=== PATIENT | male | born 1990 | race Caucasian/White ===

== ENCOUNTER 2022-12-30 07:50 | Outpatient (CLI) | payer OTHER, SELFPAY | END 2022-12-30 07:51 | disposition home or self-care (01) | LOC: NFLDREF 20:48 | PROVIDERS: PCP Family Medicine; Referring Provider Family Medicine; Visit Provider Family Medicine | DX: Z13.6 Encounter for screening for cardiovascular disorders (principal); Z13.1 Encounter for screening for diabetes mellitus | CPT/HCPCS: 80061; 82947 ==

== ENCOUNTER 2023-12-08 09:57 | Outpatient (CLI) | payer BC, SELFPAY ==
--- OUTSIDE RECORDS SUMMARY | 2023-12-08 10:00 | XMS_ITS | Encounter Summary ---
Author Organization [facility] Address [address] [place] [address] Care Team Providers Care Patient Relations Manager Name Role Phone Cullen Gonzales MD Primary Care Provider [phone] Encounter Details Date Type Department Care Team (Late st Contact Info) Description 12/03/2023 Telephone [facility] Services - Behavioral Service Line [address] [place] [phone] Gay Moya Social History Tobacco Use Types Packs/Day Years Used Date Smoking Tobacco: Every Day Smokeless Tobacco: Never Alcohol Use Standard Drinks/Week Comments Yes 0 (1 standard drink = 0.6 oz pur e alcohol) Sex and Gender Information Value Date Recorded Sex Assigned at Not on file Gender Identity Not on file Sexual Orientation Not on file documented as of this encounter Miscellaneous Notes * Telephone Encounter - Gay Moya - 12/03/2023 10:32 AM CDT Triage and Transition Services- Patient Follow Up Call Service Line Making Phone Call: Extended Care Who did Room Service Associate Talk to: Patient Details of Call: Patient returned call and identified that he has his appointments set up and has no further needs. Gay Moya 12/03/2023 10:32 AM documented in this encounter Plan of Treatment Not on file documented as of this encounter Visit Diagnoses Not on filedocumented in this encounter Additional Health Concerns Assessment Noted Time PHQ-9 Depression Total Score: 8 09/09/19 17 7:29 AM CDT documented as of this encounter Care Teams Patient Relations Manager Relationship Specialty Start Date End Date Cullen Gonzales MD [facility] [place] [address] PCP - General Family Medicine 11/30/23 documented as of this encounter
--- OUTSIDE RECORDS SUMMARY | 2023-12-08 10:00 | XMS_ITS | Clinical Summary ---
Author Organization [facility] Address [address] [place] [address] Care Team Providers Care Kaiawhina Kura [place] Maori Name Role Phone Cullen Gonzales MD Primary Care Provider Allergies Active Allergy Reactions Criticality Noted Date Comments Amoxicillin-Pot Clavulanate 09/10/19 17 Cefaclor Hives 09/07/2016 Medications Medication Sig Dispensed Refills Start Date End Date Status hydrOXYzine HCl (ATARAX) 25 MG tablet Take 1 tablet (25 mg) by mouth 3 times daily as needed for anxiety. 12 tablet 12/02/2023 Active sertraline (ZOLOFT) 100 MG tablet Take 1.5 tablets (150 mg) by mouth daily. 45 tablet 12/02/2023 4 Active sertraline (ZOLOFT) 100 MG tablet Take 100 mg by mouth daily. 90 tablet 1 09/07/2016 4 Discontinued ondansetron (ZOFRAN ODT) 4 MG ODT tabIndications:D iverticulitis of colon Take 1 tablet (4 mg) by mouth 3 times daily (before meals) 20 tablet 1 09/07/2016 4 Discontinued(Med Rec(No AVS / No eCancel)) Active Problems Problem Noted Date Diagnosed Date Severe episode of recurrent major depressive disorder, without psychotic features 12/01/2023 Tethered cord 09/25/2016 Neurogenic bladder 09/09/2016 Self-catheterizes urinary bladder 09/09/2016 Chronic idiopathic constipation 09/09/2016 Irritable bowel syndrome with constipation 09/07 Recurrent major depressive disorder, in partial remission 09/07/2016 Anxiety 09/07/2016 Encounters Date Type Department Care Team Description 12/03/2023 Telephone [facility] - Behavioral Service Line [address] [place] [address] Gay Moya 12/03/2023 [facility] Line [facility] [place] [phone] ReneAmanda talley Chava 12/02/2023 Travel 12/02/2023 Telephone [facility] Intake [address] [place] [phone] Generic Behavioral Nandini, MH/CD Inpatient 12/01/2023 [facility] Intake [address] [place] [phone] [facility] Nandini, MH/CD Inpatient 11/30/2023 8:28 PM CDT - 12/02/2023 1:37 PM CDT Emergency [facility] Emergency Dept [address] [place] [phone] Pierce Lorenzo MD Daro, MD David Stevens Christopher E, MD Dunbar, MD Jose Bailey, Darien Rowley MD Suicidal ideation Discharge Disposition: Home or Self Care 11/30/2023 [facility] Intake [address] [place] [phone] Behavioral Nandini Hart MD MH/CD Inpatient 11/30/2023 Travel from Last 3 Months Immunizations Name Administration Dates Next Due DTAP (<7y) 12/11/1995, 3,10/08/1991,04/28/1991, 02/03/1991 HIB (PRP-T) 02/02/1992,10/06/1991,04/28/1991 ,02/03/1991 HepB 10/02/2002,04/17/2002,02/27/2002 MMR 12/11/1995,02/02/1992 Meningococcal ACWY (Menactra??) 02/01/2008 Poliovirus, inactivated (IPV) 12/11/1995, 993,04/28/1991,02/03/1991 TD,PF 7+ (Tenivac) 08/10/2003 TDAP Vaccine (Adacel) 02/01/2008 Family History Medical History Relation Comments Diabetes Maternal Aunt Diabetes Maternal Grandmother Alcoholism Paternal Grandfather Relation Status Comments Brother Alive Father Alive Maternal Aunt Alive Maternal Grandfather Alive Maternal Grandmother Alive Mother Alive Paternal Grandfather Alive Paternal Grandmother Social History Tobacco Use Types Packs/Day Years Used Date Smoking Tobacco: Every Day Smokeless Tobacco: Never Alcohol Use Standard Drinks/Week Comments Yes 0 (1 standard drink = 0.6 oz pur e alcohol) Sex and Gender Information Value Date Recorded Sex Assigned at Not on file Gender Identity Not on file Sexual Orientation Not on file Last Filed Vital Signs Vital Sign Reading Time Taken Comments Blood Pressure 150/94 12/02/2023 1:11 PM CDT Pulse 99 12/02/2023 1:11 PM CDT Temperature 37.2 ??C (98.9 ??F) 12/01/2023 9:00 AM CD T Respiratory Rate 16 12/02/2023 1:11 PM CDT Oxygen Saturation 99% 12/02/2023 1:11 PM CDT Inhaled Oxygen Concentration - - Weight 80.6 kg (177 lb 11.1 oz) 11/30/2023 8:26 PM CDT Height 167.6 cm (5' 6) 11/30/2023 8:26 PM CDT Body Mass Index 28.68 11/30/2023 8:26 PM CDT Plan of Treatment Health Maintenance Due Date Last Done Comments ADVANCE CARE PLANNING 1990 ANNUAL REVIEW OF HM ORDERS 1990 DEPRESSION ACTION PLAN 1990 NICOTINE/TOBACCO CESSATION COUNSELING Q 1 YR 1990 YEARLY PREVENTIVE VISIT 1990 Pneumococcal Vaccine: Pediatrics (0 to 5 Years) and At-Risk Patients (6 to 64 Years) (1 of 2 - PCV) 1996 HIV SCREENING 2005 HEPATITIS C SCREENING 2008 PHQ-9 03/10/2017 09/07/2016, 09/05/2015 COVID-19 Vaccine ( season) 2023 03/16/2021, 04/09/2020, 03/19/2020 INFLUENZA VACCINE (#1) 2023 , 12/14/2019, 01/16/2013, Additional history exists DTAP/TDAP/TD IMMUNIZATION (8 - Td or Tdap) 05/07/2027 05/06/2017, 02/01/2008, 08/13/2003, Additional history exists RSV VACCINE (1 - 1-dose 75+ series) 2065 HEPATITIS B IMMUNIZATION Completed 003, 10/02/2002, 04/17/2002, Additional history exists MENINGITIS IMMUNIZATION Completed 02/01/2008 HPV IMMUNIZATION Aged Out No longer e ligible based on patient's age to complete this topic RSV MONOCLONAL ANTIBODY Aged Out No l onger eligible based on patient's age to complete this topic Procedures Procedure Name Priority Date/Time Associated Diagnosis Comments URINE DRUG SCREEN STAT 12/01/2023 9:1 9 AM CDT URINE DRUG SCREEN PANEL STAT 12/01/2023 9:19 AM CDT COVID-19 VIRUS (CORONAVIRUS) BY PCR STAT 11/30/2023 11:17 PM CDT CBC WITH PLATELETS & DIFFERENTIAL STAT 11/30/2023 11:10 PM CDT CBC WITH PLATELETS AND DIFFERENTIAL STAT 11/30/2023 11:10 PM CDT ETHYL ALCOHOL LEVEL STAT 11/30/2023 1 1:10 PM CDT COMPREHENSIVE METABOLIC PANEL STAT 11/30/2023 11:10 PM CDT PHQ-9 DEPRESSION SCREENING ORDER Routine 09/05/2015 from Last 3 Months or Most Recently Relevant to Health Maintenance Results * (ABNORMAL) Urine Drug Screen Panel (12/01/2023 9:19 AM CDT) [facility] Amphetamines Urine Screen Negative Screen Negative 12/01/2023 10:11 AM CDT LABORATORY Comment:Cutoff for a negativ e amphetamine is less than 500 ng/mL. Barbituates Urine Screen Negative Screen Negative 12/01/2023 10:11 AM CDT LABORATORY Comment:Cutoff for a negativ e barbiturate is less than 200 ng/mL. Benzodiazepine Urine Screen Negative Screen Negative 12/01/2023 10:11 AM CDT LABORATORY Comment:Cutoff for a negativ e benzodiazepine is less than 100 ng/mL. Cannabinoids Urine Screen Positive(A) Screen Negative 12/01/2023 10:11 AM CDT LABORATORY Comment: Cutoff for a positive cannabinoid is 50 ng/mL or greater. This is an unconfirmed screening result to be used for medical purposes only. Cocaine Urine Screen Negative Screen Negative 12/01/2023 10:11 AM CDT [facility] Comment:Cutoff for a negativ e cocaine is less than 300 ng/mL. Fentanyl Qual Urine Screen Negative Screen Negative 12/01/2023 10:11 AM CDT [facility] Comment:Cutoff for negative fentanyl is less than 5 ng/mL. Opiates Urine Screen Negative Screen Negative 12/01/2023 10:11 AM CDT [facility] Comment:Cutoff for a negativ e opiate is less than 300 ng/mL. PCP Urine Screen Negative Screen Negative 12/01/2023 10:11 AM CDT LABORATORY Comment:Cutoff for a negativ e PCP is less than 25 ng/mL. Urine URINE SPECIMEN FROM URINARY CONDUIT / Unknown Non-blood Collection / Unknown 12/01/2023 9:19 AM CDT 12/01/2023 9:24 AM CDT Pierce Lorenzo MD LAB - URINE ORDERABL ES LABORATORY [facility] [address] [facility] Lab (1st floor, no room number) [place] [address] * Asymptomatic COVID-19 Virus (Coronavirus) by PCR Nose (11/30/2023 11:17 PM CDT) SARS CoV2 PCR Negative Negative 11/30/2023 11:59 PM CDT LABORATORY Comment:NEGATIVE: SARS-CoV-2 (COVID-19) RNA not detected, presumed negative. Swab NASAL STRUCTURE / Unknown Non-blood Collection / Unknown 11/30/2023 11:17 PM CDT 11/30/2023 11:19 PM CDT Narrative [facility] - 11/30/2023 11:59 PM CDT Testing was performed using the Xpert Xpress SARS-CoV-2 Assay on the [employer]. Additional information about this assay can be found via the Test Directory. This [place] FDA cleared test should be ordered for the detection of SARS-CoV-2 in individuals with signs and symptoms of respiratory tract infection. This test is for in vitro diagnostic use under the US FDA for laboratories certified under CLIA to perform high complexity testing. A negative result does not rule out the presence of PCR inhibitors in the specimen or target RNA concentration below the limit of detection for the assay. The possibility of a false negative should be considered if the patient's recent exposure or clinical presentation suggests COVID-19. This test was validated by [facility]. These Laboratories are certified under the ??Clinical Laboratory Improvement Amendments (CLIA) as qualified to perform high complexity testing. Pierce Lorenzo MD LAB - MICRO GENERAL ORDERABLES [facility] [address] [facility] Lab (1st floor, no room number) [place] [address] * CBC with platelets and differential (11/30/2023 11:10 PM CDT) WBC Count 5.6 4.0 - 11.0 10e3/uL 11/30/2023 11:21 PM CDT [facility] RBC Count 5.16 4.40 - 5.90 10e6/uL 11/30/2023 11:21 PM CDT [facility] Hemoglobin 14.6 13.3 - 17.7 g/dL 11/30/2023 11:21 PM CDT [facility] Hematocrit 43.5 40.0 - 53.0 % 11/30/2023 11:21 PM CDT [facility] MCV 84 78 - 100 fL 11/30/2023 11:21 PM CDT [facility] MCH 28.3 26.5 - 33.0 pg 11/30/2023 11:21 PM CDT [facility] MCHC 33.6 31.5 - 36.5 g/dL 11/30/2023 11:21 PM CDT [facility] RDW 12.4 10.0 - 15.0 % 11/30/2023 11:21 PM CDT [facility] Platelet Count 219 150 - 450 10e3/uL 11/30/2023 11:21 PM CDT [facility] % Neutrophils 51 % 11/30/2023 11:21 PM CDT [facility] % Lymphocytes 42 % 11/30/2023 11:21 PM CDT [facility] % Monocytes 6 % 11/30/2023 11:21 PM CDT [facility] % Eosinophils 1 % 11/30/2023 11:21 PM CDT [facility] % Basophils 1 % 11/30/2023 11:21 PM CDT [facility] % Immature Granulocytes 0 % 11/30/2023 11:21 PM CDT [facility] NRBCs per 100 WBC 0 <1 /100 024 11:21 PM CDT [facility] Absolute Neutrophils 2.9 1.6 - 8.3 10e3/uL 11/30/2023 11:21 PM CDT [facility] Absolute Lymphocytes 2.3 0.8 - 5.3 10e3/uL 11/30/2023 11:21 PM CDT [facility] Absolute Monocytes 0.3 0.0 - 1.3 10e3/uL 11/30/2023 11:21 PM CDT [facility] Absolute Eosinophils 0.0 0.0 - 0.7 10e3/uL 11/30/2023 11:21 PM CDT [facility] Absolute Basophils 0.0 0.0 - 0.2 10e3/uL 11/30/2023 11:21 PM CDT [facility] Absolute Immature Granulocytes 0.0 <=0.4 10e3/uL 11/30/2023 11:21 PM CDT [facility] Absolute NRBCs 0.0 10e3/uL 11/30/2023 11:21 PM CDT [facility] Blood BLOOD SPECIMEN / Unknown Venipuncture / Unknown 11/30/2023 11:10 PM CDT 11/30/2023 11:19 PM CDT Pierce Lorenzo MD LAB - BLOOD ORDERABL ES [facility] [address] Lab (1st floor, no room number) [place] [address], [facility] * (ABNORMAL) Comprehensive metabolic panel (11/30/2023 11:10 PM CDT) Sodium 138 135 - 145 mmol/L 11/30/2023 11:39 PM CDT [facility] Potassium 4.0 3.4 - 5.3 mmol/L 11/30/2023 11:39 PM CDT [facility] Carbon Dioxide (CO2) 21(L) 22 - 29 mmol/L 11/30/2023 11:39 PM CDT [facility] Anion Gap 18(H) 7 - 15 mmol/L 11/30/2023 11:39 PM CDT [facility] Urea Nitrogen 11.8 6.0 - 20.0 mg/dL 11/30/2023 11:39 PM CDT [facility] Creatinine 0.83 0.67 - 1.17 mg/dL 11/30/2023 11:39 PM CDT [facility] GFR Estimate >90 >60 mL/min/1.7 3m2 11/30/2023 11:39 PM CDT [facility] Comment:eGFR calculated usin g 2020 CKD-EPI equation. Calcium 9.6 8.8 - 10.4 mg/dL 11/30/2023 11:39 PM CDT [facility] Comment:Reference intervals for this test were updated on 09/14/2023 to reflect our healthy population more accurately. There may be differences in the flagging of prior results with similar values performed with this method. Those prior results can be interpreted in the context of the updated reference intervals. Chloride 99 98 - 107 mmol/L 11/30/2023 11:39 PM CDT [facility] Glucose 93 70 - 99 mg/dL 11/30/2023 11:39 PM CDT [facility] Alkaline Phosphatase 46 40 - 150 U/L 11/30/2023 11:39 PM CDT [facility] AST 26 0 - 45 U/L 11/30/2023 11:39 PM CDT [facility] ALT 26 0 - 70 U/L 11/30/2023 11:39 PM CDT [facility] Protein Total 7.6 6.4 - 8.3 g/dL 11/30/2023 11:39 PM CDT [facility] Albumin 5.0 3.5 - 5.2 g/dL 11/30/2023 11:39 PM CDT [facility] Bilirubin Total 0.4 <=1.2 mg/dL 11/30/2023 11:39 PM CDT [facility] Blood BLOOD SPECIMEN / Unknown Venipuncture / Unknown 11/30/2023 11:10 PM CDT 11/30/2023 11:19 PM CDT Pierce Lorenzo MD LAB - BLOOD ORDERABL ES [facility] [address] Lab (1st floor, no room number) [place] [address] * (ABNORMAL) Ethyl Alcohol Level (11/30/2023 11:10 PM CDT) Alcohol ethyl 0.09(H) <=0.01 g/dL 11/30/2023 11:39 PM CDT [facility] Blood BLOOD SPECIMEN / Unknown Venipuncture / Unknown 11/30/2023 11:10 PM CDT 11/30/2023 11:19 PM CDT Pierce Lorenzo MD LAB - BLOOD ORDERABL ES [facility] [address] Lab (1st floor, no room number) [place] [address] * PHQ-9 DEPRESSION SCREENING ORDER (09/05/2015) PHQ9 SCORE 13 Sana Hernandez - 09/05/2015 [facility], CLINIC NOTES, 02/26/15-09/05/15 Provider Outside OTHER from Last 3 Months or Most Recently Relevant to Health Maintenance Care Teams Kaiawhina Kura [place] Maori Relationship Specialty Start Date End Date Cullen Gonzales MD [address] [address] PCP - General Family Medicine 11/30/23
--- OUTSIDE RECORDS SUMMARY | 2023-12-08 10:00 | XMS_ITS | Encounter Summary ---
Author Organization [place] Address [address] [place] [address] Care Team Providers Care School Childcare Attendant Name Role Phone Cullen Gonzales MD Primary Care Provider [phone] Reason for Visit * Reason Onset Date Comments MH/CD Inpatient 12/01/2023 Encounter Details Date Type Department Care Team ([facility] Contact Info) Description 12/01/2023 Telephone [facility] Health Intake [address] [place] [phone] Generic, Behavioral Intake, MH/CD Inpatient Social History Tobacco Use Types Packs/Day Years [...] encounter Miscellaneous Notes * Telephone Encounter - Sophia Garcia - 12/01/2023 3:57 PM CDT 3:56 PM Intake received call from Sola GARCIA with the following information. Rn reporting Pt spinal surgery was in 2003. Also last use of cocaine per Pt was over a year ago in 2022 or longer. No specific dates able to be recalled. Coordinator following Pt notified. * Telephone Encounter - Kiana Quinones - 12/01/2023 12:02 PM CDT R: [facility] Access Inpatient Bed Call Log 12/01/23 0830 Intake has called facilities that have not updated the bed status within the last 12 hours. [facility] is at capacity. [facility] is posting 0 beds. [phone] Per call @ 8:30 AM, no beds. [facility] is posting 0 beds. Negative covid required. [facility] is posting 0 beds. Neg covid. No high school/Frida-psych. [phone]. [facility] is posting 0 beds. [phone] [facility] is posting 0 beds. [phone] [facility] is posting 1 bed. Negative covid. Per Swathi @ 12:10 PM, no more YA beds. [facility] is posting 0 beds [phone] Pt remains on the work list pending appropriate bed availability. 1:04 PM Per call from Swathi @ , they now have a YA bed open and can review. 1:10 PM Requested med clearance note. 1:41 PM Clinical faxed. Still awaiting med clearance note. 2:26 PM med clearance note faxed to . 3:37 PM Merly from is needing info re: Last cocaine use and how long ago was spinal cord surgery was. 3:46 PM Called [facility] ED, RN unavailable. Left message with questions and requested a call back. 4:25 PM Provided Merly @ with update on questions. 6:15 PM Per Esteban @ , pt is being declined d/t being medically unstable. * Telephone Encounter - Kylie Bojorquez 12/01/2023 12:19 AM CDT R: AKIRA Access Inpatient Bed Call Log 11/30/2023 11:29 PM Intake has called facilities that have not updated their bed status within the last 12 hours.?? *JENNIFER [place] -- [facility]: @ Cap per website. [place] -- [facility]: @ Cap per website. [place] -- [place]: @ Cap per website. [place] -- [facility]: @ Cap per website. - 11:34 PM Per Rc, they are capped. [place] -- [facility]: @ Cap per website. [facility] -- [facility]: @ Cap per website. [place] -- [facility]/YA beds @ Cap per website. Ages 18-35, Voluntary only, COVID test req'd, NO aggression, physical or sexual assault, violence hx or drug abuse, or psychosis - 11:30 PM [place] YA: None, [place]: Yes , Child: None. [place] -- [facility]: @ Cap per website. [place] -- [facility]: @ cap per website. [place] -- [facility]: @ Cap per website. Pt remains on waitlist pending appropriate placement availability. documented in this encounter Plan of Treatment Not on file documented as of this encounter Visit Diagnoses Not on filedocumented in this encounter Additional Health Concerns Assessment Noted Time PHQ-9 Depression Total Score: 8 09/09/19 17 7:29 AM CDT documented as of this encounter Care Teams School Childcare Attendant Relationship Specialty Start Date End Date Cullen Gonzales MD [facility] - [address] [address] PCP - General Family Medicine 11/30/23 documented as of this encounter
--- OUTSIDE RECORDS SUMMARY | 2023-12-08 10:00 | XMS_ITS | Encounter Summary ---
Author Organization [place] Address [address] [place] [address] Care Team Providers Care Tool Shaper Set Up Operator Name Role Phone Cullen Gonzales MD Primary Care Provider [phone] Encounter Details Date Type Department Care Team (Late st Contact Info) Description 12/03/2023 Telephone [facility] Services - Behavioral Service Line [address] [place] [phone] Amanda Craig Social History Tobacco Use Types Packs/Day Years [...] encounter Miscellaneous Notes * Telephone Encounter - Amanda Craig - 12/03/2023 9:47 AM CDT Triage and Transition Services- Patient Follow Up Call Service Line Making Phone Call: Extended Care Who did Metal Furniture Polisher Talk to: Patient Details of Call: left message to return my call on patient's answering machine Amanda Craig 12/03/2023 9:47 AM documented in this encounter Plan of Treatment Not on file documented as of this encounter Visit Diagnoses Not on filedocumented in this encounter Additional Health Concerns Assessment Noted Time PHQ-9 Depression Total Score: 8 09/09/19 17 7:29 AM CDT documented as of this encounter Care Teams Tool Shaper Set Up Operator Relationship Specialty Start Date End Date Cullen Gonzales MD [facility] - [address] [address] PCP - General Family Medicine 11/30/23 documented as of this encounter
--- OUTSIDE RECORDS SUMMARY | 2023-12-08 10:00 | XMS_ITS | Encounter Summary ---
Author Organization [place] Address [address] [place] [address] Care Team Providers Care Cs Associate Name Role Phone Cullen Gonzales MD Primary Care Provider Encounter Details Date Type Department Care Team (Latest Contact Info) Description 11/30/2023 Travel Social History Tobacco Use Types Packs/Day Years Used Date Smoking Tobacco: Every Day Smokeless Tobacco: Never Alcohol Use Standard Drinks/Week Comments Yes 0 (1 standard drink = 0.6 oz pur e alcohol) Sex and Gender Information Value Date Recorded Sex Assigned at Not on file Gender Identity Not on file Sexual Orientation Not on file documented as of this encounter Plan of Treatment Not on file documented as of this encounter Visit Diagnoses Not on filedocumented in this encounter Additional Health Concerns Assessment Noted Time PHQ-9 Depression Total Score: 8 09/09/19 17 7:29 AM CDT documented as of this encounter Care Teams Cs Associate Relationship Specialty Start Date End Date Cullen Gonzales MD [address] [address] PCP - General Family Medicine 11/30/23 documented as of this encounter
--- OUTSIDE RECORDS SUMMARY | 2023-12-08 10:00 | XMS_ITS | Encounter Summary ---
Author Organization [facility] Address [address] [place] [id number] Care Team Providers Care Post Anesthesia Care Unit Nurse Name Role Phone Cullen Gonzales MD Primary Care Provider [phone] Reason for Visit * Reason Onset Date Comments MH/CD Inpatient 12/02/2023 Encounter Details Date Type Department Care Team ([facility] st Contact Info) Description 12/02/2023 Telephone [facility] Behavioral Health Intake [address] [place] [address] Generic, Behavioral Intake, MH/CD Inpatient Social [...] encounter Miscellaneous Notes * Telephone Encounter - Nicolasa Sanchez - 12/02/2023 3:18 PM CDT Images from the original note were not included. 3:18 PM Intake removed from [facility] added to discharge tab * Telephone Encounter - Dylan Torres - 12/02/2023 7:42 AM CDT 8:45 AM: [facility] is currently at capacity. R: [place] Call Log 12/02/2023 @7:05 am: Intake has called facilities that have not updated the bed status within the last 12 hours. (Adults) [facility] is posting 0 beds. [facility] is posting 0 beds. [phone]; per call at 7:06 am to Ariane, they are at cap. [facility] is posting 0 beds. Negative covid required. [facility] is posting 0 beds. Neg covid. No high school/[facility]ida-psych. [phone]; per call at 7:07 am to Brenda, they are at cap. [facility] is posting 0 beds. [phone] [facility] is posting 0 beds. [facility] is posting 6 beds. (Ages 18-35) Negative covid. [phone]; per call at 7:08 am to Swathi, they have many y/a beds (low acuity only) avail. [facility] is posting 0 beds. [facility] is posting 0 beds. [phone] Pt remains on the work list pending appropriate bed availability. * Telephone Encounter - Mary LoushoaibYessica - 12/02/2023 1:06 AM CDT R: [facility] Access Inpatient Bed Call Log 12/01/23 11:48 PM?? Intake has called facilities that have not updated the bed status within the last 12 hours.? [facility] is at capacity.? [facility] is posting 0 beds. [phone]. Per call to [facility] 3:40 PM, no beds, try back later. [facility] is posting 0 beds. Negative covid required. [facility] is posting 0?beds. Neg covid. No high school/Frida-psych. [phone]. Per call withPaula 3:38 PM at [facility] is posting 0 beds.?[phone] [facility] is posting 0 beds. [facility] is posting 6?beds. Negative covid.? - Declined due to medical instability [facility] is posting 0 beds [phone] Pt remains on the work list pending appropriate bed availability.? documented in this encounter Plan of Treatment Not on file documented as of this encounter Visit Diagnoses Not on filedocumented in this encounter Additional Health Concerns Assessment Noted Time PHQ-9 Depression Total Score: 8 09/09/19 17 7:29 AM CDT documented as of this encounter Care Teams Post Anesthesia Care Unit Nurse Relationship Specialty Start Date End Date Cullen Gonzales MD [facility] [place] [phone] PCP - General Family Medicine 11/30/23 documented as of this encounter
--- OUTSIDE RECORDS SUMMARY | 2023-12-08 10:00 | XMS_ITS | Referral Summary ---
Author Organization [place] Address [address] [place] [address]. [place] [address] Care Team Providers Care Leather Tacker Name Role Phone Cullen Gonzales MD Primary Care Provider [phone] Encounters Date Type Department Care Team Description 12/03/2023 Telephone [facility] Behavioral Service Line [address] [place] [phone] Gay Moya 12/03/2023 Telephone [facility] - Behavioral Service Line [address] [place] [phone] Amanda Craig 12/02/2023 Travel 12/02/2023 Telephone [facility] Intake [address] [place] [phone] Behavioral Nandini Hart MD MH/CD Inpatient 11/30/2023 8:28 PM CDT - 12/02/2023 1:37 PM CDT Emergency [facility] Emergency Dept [address] [place] [address] Pierce Lorenzo MD Daro, MD David Stevens Christopher E, MD Dunbar, MD Jose Bailey, Darien Rowley MD Suicidal ideation Discharge Disposition: Home or Self Care 12/01/2023 Telephone [facility] Intake [address] [place] [phone] Behavioral Nandini Hart MD MH/CD Inpatient 11/30/2023 Telephone [facility] Intake [address] [place] [phone] Generic, Behavioral Intake, MD JOHNSON/CD Inpatient 11/30/2023 Travel from Last 3 Months Allergies Active Allergy Reactions Criticality Noted Date [...] disorder, 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.] Drug Screen Panel (12/01/2023 9:19 AM CDT) Amphetamines Urine Screen Negative Screen Negative 12/01/2023 10:11 AM CDT LABORATORY Comment:Cutoff for a negativ e amphetamine is less than 500 ng/mL. Barbituates Urine Screen Negative Screen Negative 12/01/2023 10:11 AM CDT LABORATORY Comment:Cutoff for a negativ e barbiturate is less than 200 ng/mL. Benzodiazepine Urine Screen Negative Screen Negative 12/01/2023 10:11 AM CDT [facility] LABORATORY Comment:Cutoff for a negativ e benzodiazepine is less than 100 ng/mL. Cannabinoids Urine Screen Positive(A) Screen Negative 12/01/2023 10:11 AM CDT LABORATORY Comment: Cutoff for a positive cannabinoid is 50 ng/mL or greater. This is an unconfirmed screening result to be used for medical purposes only. Cocaine Urine Screen Negative Screen Negative 12/01/2023 10:11 AM CDT LABORATORY Comment:Cutoff for a negativ e cocaine is less than 300 ng/mL. Fentanyl Qual Urine Screen Negative Screen Negative 12/01/2023 10:11 AM CDT [facility] Comment:Cutoff for negative fentanyl is less than 5 ng/mL. Opiates Urine Screen Negative Screen Negative 12/01/2023 10:11 AM CDT LABORATORY Comment:Cutoff for a negativ e opiate is less than 300 ng/mL. PCP Urine Screen Negative Screen Negative 12/01/2023 10:11 AM CDT LABORATORY Comment:Cutoff for a negativ e PCP is less than 25 ng/mL. Urine URINE SPECIMEN FROM URINARY CONDUIT / Unknown Non-blood Collection / Unknown 12/01/2023 9:19 AM CDT 12/01/2023 9:24 AM CDT Pierce Lorenzo MD LAB - URINE ORDERABL ES LABORATORY [facility] [address] Lab (1st floor, no room number) [place] [address], [facility] * Asymptomatic COVID-19 Virus (Coronavirus) by PCR Nose (11/30/2023 11:17 PM CDT) SARS CoV2 PCR Negative Negative 11/30/2023 11:59 PM CDT LABORATORY Comment:NEGATIVE: SARS-CoV-2 (COVID-19) RNA not detected, presumed negative. Swab NASAL STRUCTURE / Unknown Non-blood Collection / Unknown 11/30/2023 11:17 PM CDT 11/30/2023 11:19 PM CDT [facility] LABORATORY - 11/30/2023 11:59 PM CDT Testing was performed using the Xpert Xpress SARS-CoV-2 Assay on the [employer]. Additional information about this assay [...] suggests COVID-19. This test was validated by [facility]. These Laboratories are certified under the ??Clinical Laboratory Improvement Amendments (CLIA) as qualified to perform high complexity testing. Pierce Lorenzo MD LAB - MICRO GENERAL ORDERABLES LABORATORY [facility] [address] Lab (1st floor, no room number) [place] [address], [facility] * CBC with platelets and differential (11/30/2023 11:10 PM CDT) Pathologist [facility] WBC Count 5.6 4.0 - 11.0 10e3/uL 11/30/2023 11:21 PM CDT LABORATORY RBC Count 5.16 4.40 - 5.90 10e6/uL 11/30/2023 11:21 PM CDT LABORATORY Hemoglobin 14.6 13.3 - 17.7 g/dL [...] LAB - BLOOD ORDERABL ES RH LABORATORY [facility] [address] Lab (1st floor, no room number) [place] [address] * (ABNORMAL) Comprehensive metabolic panel (11/30/2023 11:10 [...] Lorenzo MD LAB - BLOOD ORDERABL ES [facility] Acute Care Lab [address] Lab (1st floor, no room number) [address] * (ABNORMAL) Ethyl Alcohol Level (11/30/2023 11:10 PM CDT) Alcohol ethyl 0.09(H) <=0.01 g/dL 11/30/2023 11:39 PM CDT [facility] LABORATORY Blood BLOOD SPECIMEN / Unknown Venipuncture / Unknown 11/30/2023 11:10 PM CDT 11/30/2023 11:19 PM CDT Pierce Lorenzo MD LAB - BLOOD ORDERABL ES [facility] Acute [facility] Lab [address] Lab (1st floor, no room number) [address] * PHQ-9 DEPRESSION SCREENING ORDER (09/05/2015) PHQ9 SCORE 13 Sana Hernandez - 09/05/2015 [facility], CLINIC NOTES, 02/26/15-09/05/15 Provider Outside OTHER from Last 3 Months or Most Recently Relevant to Health Maintenance Care Teams Leather Tacker Relationship Specialty Start Date End Date Cullen Gonzales MD [facility] [address] [place] [address] PCP - General Family Medicine 11/30/23
--- OUTSIDE RECORDS SUMMARY | 2023-12-08 10:00 | XMS_ITS | Encounter Summary ---
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 Role Phone Cullen Gonzales MD Primary Care Provider [phone] Reason for Visit * Reason Comments Suicidal Encounter Details Date Type Department Care Team (Late st Contact Info) Description 11/30/2023 8:28 PM CDT - 12/02/2023 1:37 PM CDT Emergency [facility] Emergency Dept [address] [facility] [place] [address] Pierce Lorenzo MD EM[facility]GENCY PHYSICIAN [facility] [address] [place] [address] [place] [id number] Tadeo Gambino MD Vaughn, Christopher E, MD [facility] [address] [place] [phone] Jose He MD [facility] [address] [place] [phone] Darien Garcia MD [facility] [address] [place] [address] [place] [address] [phone] Suicidal ideation Discharge Disposition: Home or Self Care Social History Tobacco Use Types Packs/Day Years Used Date Smoking Tobacco: Every Day Smokeless Tobacco: Never Alcohol Use Standard Drinks/Week Comments Yes 0 (1 standard drink = 0.6 oz pur e alcohol) Sex and Gender Information Value Date Recorded Sex Assigned at Not on file Gender Identity Not on file Sexual Orientation Not on file documented as of this encounter Last Filed Vital Signs Vital Sign Reading [...] Mass Index 28.68 11/30/2023 8:26 PM CDT documented in this encounter Discharge Instructions * Discharge Instructions* Katja Quintero LICSW - 12/02/2023 12:36 PM CDT [facility] SCHEDULING: Today you were seen by a licensed mental health professional through [facility] ([facility]) for a crisis assessment in the Emergency Department at [facility]. It is recommended that you follow up with your estabished providers (psychiatrist, mental health therapist, and/or primary care doctor - as relevant) as soon as possible. Coordinators from [facility] will be calling you in the next 24-48 hours to ensure that you have the resources you need. You can also contact [facility] coordinators directly at [phone]. You have been scheduled the following appointments: Therapy: Date: 12/06/2023 Time: 12:00 pm - 1:00 pm Provider: Susannah Gerber MA, LMFT Location: [employer], [facility], [address] [place] [address] Type: Therapy - Initial (In-Person) WEBSITE: [email or web address] Psychiatry: Date: 12/07/2023 Time: 2:00 pm - 3:00 pm Provider: Sue Aguilera MS, CNP,SANDI,RN Location: [facility], [address], [address], [place] [address] Type: Medication Mgmt - Initial (In-Person) Patient Instructions [email or web address] Diagnostic Assessment: You have been scheduled with the [facility] for a Diagnostic Assessment appointment on 12/17/2023 at 9:30am. Please allow up to 90 -120 minutes for your appointment. This is aVIRTUAL appointment. Please bring contact names and phone numbers for Emergency Contacts, therapist, psychiatrist, PO, attorneys, or other relevant contacts that may be needed. Please note: Parents must accompany any patient under the age of 18. Any patient under legal guardianship will need to bring court documents. Adult appointments can last up to 90+ minutes. You will receive a phone call 2-4 days prior to your scheduled time to confirm and remind you of the appointment. You will receive intake forms via [employer] ([email or web address]) to be completed prior to your appointment. If able, please complete this prior to your appointment to reduce the appt length of time. If you need to change this appointment for any reason, please call our [employer] Access Schedulingoffice at . Please note, we ask for at least a 24-hour notice. Any late cancelations will be considered a no-show. [facility] maintains an extensive network of licensed behavioral health providers to connect patients withthe services they need. We do not charge providers a fee to participate in our referral network. [facility] patients with providers based on a patient???s specific needs, insurance coverage, and location. Our first effort will be to refer you to a provider within your care system, and will utilize pro viders outside your care system as needed. It is your responsibility to contact your insurance company directly to verify coverage, eligibility, payment, and benefit information for any appointments or referrals listed above. [facility] maintains an extensive network of licensed behavioral health providers to connect patients withthe services they need. We do not charge providers a fee to participate in our referral network. [facility] patients with providers based on a patient's specific treatment needs, insurance coverage, and location. Our first effort will be to refer you to a provider within your care system and will util ize providers outside your care system as needed. documented in this encounter Medications at Time of Discharge Medication Sig Dispensed Refills Start Date End Date hydrOXYzine HCl (ATARAX) 25 MG tablet Take 1 tablet (25 mg) by mouth 3 times daily as needed for anxiety. 12 tablet 12/02/2023 sertraline (ZOLOFT) 100 MG tablet Take 1.5 tablets (150 mg) by mouth daily. 45 tablet 12/02/2023 01/01/2024 documented as of this encounter Progress Notes * Katja Quintero LICSW - 12/02/2023 1:37 PM CDT Triage and Transition Services Extended Care Reassessment Patient: Enmanuel goes by Enmanuel, uses he/him pronouns Date of Service: December 02, 2023 Site of Service: [facility] EMER[facility] Patient was seen yes Mode of Assessment: In person Reason for Reassessment: depression, suicidal ideation, worsening psychosocial stress, substance use History of Patient's Original Emergency Room Encounter: Pt has a history of major depressive disorder and anxiety. He reports being prescribed sertraline 150mg by his PCP at [place] for years. Prior to this medication has tried citalopram. He estimates taking medication for anxiety or depressionfor at least 8 years. He is taking it as prescribed and reports he also tries to take his medication at the same time each night. He has a history of mental health therapy with no recent therapy. He reports not opening up to his therapist fully and said that he masks mental health symptoms. He has no history of inpatient hospitalization or EFFIE tx. His grandfather in September and he reports grie ving. A close friend from suicide 10 years ago. Current Patient Presentation: [employer] Glazer knocked and entered patient's room, introduced self and explained role. 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 Patient's parents are present visiting again,they are bedside. Patient notes he is feeling better today, he said he slept overnight and feels better rested, he also said the medication changes have been helpful. Patient said the medication added yesterday for anxiety has been good, he said he feels a lot less anxious and not irritable today, he said the negative thoughts are now manageable and minimal. Patient said he agreed to wait yesterday and overnight for an IP bed, he now has discussed options to discharge with the help of his parents. Patient said he has now agreed to do a leave from work, he reached out and got the [facility] paperwork. Patient's parents said they will stay with the patient over the next few days and through the weekend, his brother and LINNEA are also available to help support and monitor the patient. Patient said he is willing to schedule outpatient appointments, he is interested in therapy, psychiatry and willing to schedule a DA to look into IOP/PHP programs. Patient feels his current state is manageable at home. Patient denies SI today, he denies having thoughts of a plan, intent, or means. Patient reported again, his brother and sister in law have removed all firearms and weapons from the home, they took the guns to a family friend who also has a gun safe, they are locked and secure patient does not have access. Patient denies thoughts/urges for self harm, he denies HI. Patient continues to deny AH/VH, he does not appear to be experiencing psychosis or daisy. Presentation Summary: Patient notes improvement in mood today, he said medication adjustments have decreased anxiety, irritability, and negative thoughts. Patient feels his current state is manageable at home. Patient denies SI today, he denies having thoughts of a plan, intent, or means. Patient re ported again, his brother and sister in law have removed all firearms and weapons from the home, they took the guns to a family friend who also has a gun safe, they are locked and secure patient doesnot have access. Patient denies thoughts/urges for self harm, he denies HI. Patient continues to deny AH/VH, he does not appear to be experiencing psychosis or daisy. Patient's parents are at bed side, they are willing to stay with the patient through the weekend to help support and monitor. Both patient and his parents appropriately engaged in safety and discharge planning. Appointments were scheduled for outpatient therapy, psychiatry, and DA for IOP/PHP Changes Observed Since Initial Assessment: decrease in presenting symptoms Therapeutic Interventions Provided: Engaged in cognitive restructuring/ reframing, looked at commoncognitive distortions and challenged negative thoughts., Coached on coping techniques/relaxation skills to help improve distress tolerance and managing intense emotions., Reviewed healthy living that supports positive mental health, including looking at sleep hygiene, regular movement, nutrition, and regular socialization., Taught the link between thoughts, feelings, and behaviors., Provided positive reinforcement for progress towards goals, gains in knowledge, and application of skills previously taught. Current Symptoms: anxious low self esteem anxious Mental Status Exam Affect: Blunted Appearance: Appropriate Attention Span/Concentration: Attentive Eye Contact: Engaged Fund of Knowledge: Appropriate Language /Speech Content: Fluent Language /Speech Volume: Normal Language /Speech Rate/Productions: Normal Recent Memory: Intact Remote Memory: Intact Mood: Depressed, Anxious Orientation to Person: Yes Orientation to Place: Yes Orientation to Time of Day: Yes Orientation to Date: Yes Situation (Do they understand why they are here?): Yes Psychomotor Behavior: Normal Thought Content: Clear Thought Form: Intact Treatment Objective(s) Addressed: rapport building, processing feelings, identifying an appropriateaftercare plan, assessing safety, identifying additional supports, exploring obstacles to safety inthe community Patient Response to Interventions: acceptance expressed, verbalizes understanding Progress Towards Goals: Patient Reports Symptoms Are: stable Patient Progress Toward Goals: is making progress Next Step to Work Toward Discharge: symptom stabilization, patient ability to engage in safety planning, engaging in safety planning with collateral sources C-SSRS Since Last Contact: 1. Wish to be (Since Last Contact): No 2. Non-Specific Active Suicidal Thoughts (Since Last Contact): No Actual Attempt (Since Last Contact): No Has subject engaged in non-suicidal self-injurious behavior? (Since Last Contact): No Interrupted Attempts (Since Last Contact): No Aborted or Self-Interrupted Attempt (Since Last Contact): No Preparatory Acts or Behavior (Since Last Contact): No Suicide (Since Last Contact): No Calculated C-SSRS Risk Score (Since Last Contact): No Risk Indicated Plan: Final Disposition / Recommended Care Path: discharge Plan for Care reviewed with assigned Medical Provider: yes Plan for Care Team Review: provider Comments: RONNI Garcia Patient and/or validated legal guardian concurs: yes Clinical Substantiation: Patient feels his current state is manageable at home. Patient denies SI today, he denies having thoughts of a plan, intent, or means. Patient reported again, his brother andsister in law have removed all firearms and weapons from the home, they took the guns to a family friend who also has a gun safe, they are locked and secure patient does not have access. Patient denie s thoughts/urges for self harm, he denies HI. Patient continues to deny AH/VH, he does not appear to be experiencing psychosis or daisy. Legal Status: Legal Status at Admission: Voluntary/Patient has signed consent for treatment Session Status: Time session started: 1130 Time session ended: 1205 Session Duration (minutes): 35 minutes Session Number: 2 Anticipated number of sessions or this episode of care: 2 Session Start Time: 0 Session Stop Time: 1205 CPT codes: 66668 - Psychotherapy (with patient) - 30 (16-37*) min Time Spent: 35 minutes CPT code(s) utilized: 25008 - Psychotherapy (with patient) - 30 (16-37*) min Diagnosis: Patient Active Problem List Diagnosis Code Irritable bowel syndrome with constipation K58.1 Recurrent major depressive disorder, in partial remission (H) F33.41 Anxiety F41.9 Neurogenic bladder N31.9 Self-catheterizes urinary bladder Z78.9 Chronic idiopathic constipation K59.04 Tethered cord (H) Q06.8 Severe episode of recurrent major depressive disorder, without psychotic features (H) F33.2 Primary Problem This Admission: Severe episode of recurrent major depressive disorder, without psychotic features (H) F33.2 Anxiety F41.9 ADILSON Simmons Licensed Mental Health Professional (LMHP), Extended Care [phone] * Katja Quintero LICSW - 12/01/2023 4:11 PM CDT Triage & Transition Services, Extended Care Therapy Progress Note Patient: Enmanuel goes by Enmanuel, uses he/him pronouns Date of Service: December 01, 2023 Site of Service: [facility] ED04 Patient was seen yes Mode of Assessment: In person Presentation Summary: [employer] Glazer knocked and entered room, asked patient permission to meet. Patient agreed, introduced self and explained role. Patient's parents were visiting at bedside, patient asked them to step out during meeting. Patient was sitting up on the gurney, he was alert and oriented. Patient presents with a blunted affect, he said he feels very anxious and irritable today, noting it has been hard for him to wait in the room in the ED for IP admission. Patient said I'm fed up, I'm sick of feeling shitty all of the time, I'm sick of being anxious and nervous and trying to mask everything all of the time trying to be normal. Patient said he feels shame that other people are concerned and had to step in to help him, he said he used to doing everything independently and feels weak that he had to ask for help. Patient noted I hate my job, I really don't ever want to go back. 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 Two years ago he moved to a school in [place], he thought the improved commute and bigger school would make things better and he would be happier. Patient said the bigger school turned out to not be better, he said he feels he didn't fit in and there was more drama. 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 Patient said he arrived to school around 7am, he gets home around 4:30pm and often works until 7/7:30pm on lessons and responding to parents. Patient said anxiety has worsened, he has been self- medicating with cannabis (uses twice per day) and alcohol, drinks 4-5 beers in the evening. Patient said he sticks to 4-5 beers because he needs to sleep and get up the next day, he said at times he uses more alcohol on the weekends. Patient continued to endorse hopeless, stating he wonders if his life has any value. Patient agreed to meet with psychiatry today, he said he has been taking Sertraline and has been complaint for several years, though is unsure if this has been helpful. Patient said he wanted to discharge with his parents, though after thinking about it he said they will likely have to go back home to [place] for work tomorrow andhe would be left alone at home. He noted difficulties waiting in the ED, having to stay in a small room, though did ultimately continue to consent to treatment and is still voluntary for admission. Therapeutic Intervention(s) Provided: Engaged in cognitive restructuring/ reframing, looked at common cognitive distortions and challenged negative thoughts., Coached on coping techniques/relaxation skills to help improve distress tolerance and managing intense emotions., Reviewed healthy living that supports positive mental health, including looking at sleep hygiene, regular movement, nutrition,and regular socialization. Current Symptoms: racing thoughts, excessive worry, anxious sense of doom, difficulty concentrating, low self esteem, impaired decision making, irritable, hoplessness, sadness, thoughts of /suicide excessive worry, anxious Mental Status Exam Affect: Blunted Appearance: Appropriate Attention Span/Concentration: Attentive Eye Contact: Engaged Fund of Knowledge: Appropriate Language /Speech Content: Fluent Language /Speech Volume: Normal Language /Speech Rate/Productions: Normal Recent Memory: Intact Remote Memory: Intact Mood: Depressed, Sad, Irritable, Anxious Orientation to Person: Yes Orientation to Place: Yes Orientation to Time of Day: Yes Orientation to Date: Yes Situation (Do they understand why they are here?): Yes Psychomotor Behavior: Normal Thought Content: Suicidal Thought Form: Intact Treatment Objective(s) Addressed: rapport building, processing feelings, identifying an appropriateaftercare plan, assessing safety, identifying additional supports, exploring obstacles to safety inthe community Patient Response to Interventions: acceptance expressed, verbalizes understanding Progress Towards Goals: Patient Reports Symptoms Are: ongoing Patient Progress Toward Goals: is making progress Next Step to Work Toward Discharge: symptom stabilization, patient ability to engage in safety planning, engaging in safety planning with collateral sources Case Management: Summary of Interaction: Consulted with Mia Cooney, psychiatry provider. Plan: inpatient mental health yes provider, JOSE HERNANDEZ- Ang Hernandez yes Clinical Substantiation: Continue to recommend IP MH admission for further safety and stabilization. Patient presented to the ED yesterday with concerns related to SI with a plan, means, and intent to by suicide using a gun. Patient did inform his family about the intent and they brought him infor evaluation, he reports they have since removed the guns from the home. For the past couple of weeks, patient reported he had been working out the details of his suicide plan. He said that obtaining the gun safe code brought a sense of peace and understanding that he was a step closer to erasing negative feelings. Yesterday he also had SIB by cutting his arm with a pocket knife. Prior to self harm yesterday, his last SIB was 5 years ago by burning himself. He reports daily alcohol and marijuana use. He is taking medication as prescribed by his PCP however does not have other mental health outpatient support. Therapeutic intervention in the ER has not lessened intensity of SI and pt hasbeen unable to engage in safety planning. Pt has limited protective factors and several risk factors for suicide. Patient was ambivalent today due to wait for admission in the ED, though he did confirm he continues to consent to treatment and is still voluntary for IP admission. Legal Status: Legal Status at Admission: Voluntary/Patient has signed consent for treatment Session Status: Time session started: 1120 Time session ended: 1150 Session Duration (minutes): 30 minutes Session Number: 1 Anticipated number of sessions or this episode of care: 4 Time Spent: 30 minutes CPT Code: CPT Codes: 54937 - Psychotherapy (with patient) - 30 (16-37*) min Diagnosis: Patient Active Problem List Diagnosis Code Irritable bowel syndrome with constipation K58.1 Recurrent major depressive disorder, in partial remission (H) F33.41 Anxiety F41.9 Neurogenic bladder N31.9 Self-catheterizes urinary bladder Z78.9 Chronic idiopathic constipation K59.04 Tethered cord (H) Q06.8 Severe episode of recurrent major depressive disorder, without psychotic features (H) F33.2 Primary Problem This Admission: *Severe episode of recurrent major depressive disorder, without psychotic features (H) F33.2 Anxiety F41.9 ADILSON Simmons Licensed Mental Health Professional (LMHP), [facility] Care [phone] documented in this encounter Consult Notes * Mia Cooney APRN ENAMEL FINISHER - 12/01/2023 10:52 AM CDTAssociated Order(s): PSYCHIATRY IP CONSULT Enmanuel Elmore Age: [age] year old Date of : 1990 Date of Admission to ED: 11/30/2023 Video Visit Details: Type of Service: Telemedicine Visit: The patient's condition can be safely assessed and treated viasynchronous audio and visual telemedicine encounter. Reason for Telemedicine Visit: due to distance location Originating Site (Patient Location): Emergency Department at [facility] Distant Site (Provider Location): [facility] emergency room Consent: The patient/guardian has been notified of the following: ???This telemedicine visit is conducted live between you and your clinician. We have found that certain health care needs can be provided without the need for a physical exam. This service lets us provide the care you need with a telemedicine conversation.?? The patient/guardian has verbally consented to: the potential risks and benefits of telemedicine (video visit) versus in person care; bill my insurance or make self-payment for services provided; andresponsibility for payment of non-covered services. Mode of Communication: Video Conference via voxapp As the provider I attest to compliance with applicable laws and regulations related to telemedicine. Video Start Time (time video started): 13:17 (25 minutes) Mia Cooney APRN ENAMEL FINISHER Contacts: Attending Physician: Ang Hernandez MD Current Outpatient Psychiatrist: PCP Primary Care Provider: Cullen Gonzales Family/friends/guardian: Jaciel Elmore, brother [phone] Therapist: none current History of Present Illness: Patient presented to the ED on 11/30/2023 for SI with a plan to shoot himself w his brother's gun (the guns have been removed from the home), in the context of frustration with current job and no longer wanting to be a teacher. Interview with patient: Enmanuel reports he is taking Zoloft 100 mg daily. He has been taking the same dose for about 3 years. It is not currently helping. He has taken Celexa in the past but not any other meds. He reports lately, he has not been having very good days at work. Feels like shit eyal he goes to work and when hecomes home feels like shit and his evening is shit. His stress level has gone up. 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 He doesn't. He was teaching 5th grade at this school for 1 year but taught 5th grade for9 year before he starting teaching at [place]. He took the job in [place] because he had to drive an hour both ways at his previous job. He did used to enjoy teaching. Things shifted during andafter Covid. He reports challenges now with managing kids behaviors, trying to make everyone happy,answering emails etc. In general, the work load increased. Depression started in 2009. That is eyal he started taking meds. He did some therapy during high school and a couple of year ago. He reports it is hard to say if helped. Depression symptoms: appetite is bad, Sleep is bad (getting about 6 hours of broken up sleep) , wakes up early and cannot go back to sleep, irritable and pissed off all the time. Isolates. Free time: music, drums and guitar, Anxiety symptoms - racing thought, edgy/tense, negative thoughts, hard to take a deep breath. 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 He has talked to his principal and it was not helpful. Rethinking career choice. Does not want to go back to school. It frustrates him. Lost hope. Agreeable to increasing sertraline to 150 mg daily. Agreeable to be admitted to IP and stabilized on medication as well as receive referrals for outpatient treatment recommendations. He reports his school sent him information on taking a leave of absence. He has not had the energy to look it over yet. Current primary symptoms include SI, SIB, irritable, depressed, mood lability, sleep issues, poor frustration tolerance, substance use, impulsive, and anxiety; . Substance use is relevant for alcohol/beer and cannabis. UDS in ED was positive for cannabis. 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 Financial stressors: not asked. Family/Friends/Support ppl: Parents Roommates: brother and [id number] Couple friends in area: they have families so they are busy. Free time: music, drums, guitar, Goes out to eat with his bother and [id number]. Feels like he shouldn't be going out because he trying to get stuff done for work. Legal Issues: none known Collateral information from the famly/friend: none Collateral information from chart review: Reviewed DEC assessment and ED notes. Per DEC assessment completed on 11/30/2023: Patient presents to the ED with his brother and sister in-law, who he resides with. 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 He reports feeling hopeless and has had difficulty finding things that bring him dasha, including activities that he normally enjoys such as playing musical instruments. He has a low appetite, eating a meal once per day. He estimates sleeping 6 hours per night, noting that anxiety is causing sleep problems. He reports having anxiety and racing thoughts about the next day. He drinks 5 beers per night (4:30pm- 9:30pm) and vapes marijuana 2x per day. He denies HI and hallucinations. He had SIB today by cutting his arm with a pocket knife. Prior to this, his last SIB was 5 years ago by burning himself. His brother owns guns and pt has been trying to figure out the code to the gun safe (trying familiar #'s such as birthdays). He developed a plan to get the gun safe code by telling his brother that he wanted to store thomas in it. He endorses a plan and intent of suicide by gun and obtained the gun safe code today. He has been planning suicide for a couple of w eeks stating he was considering how would I do it without causing a big scene. I really was tryingto be pretty sneaky in getting the code. He said the next step would be to get the weapon out andwhere do you place it on your mandaen, aim it lower or higher, what is going to cause the deed that you are going to do, with the least amount of pain or evidence. I wasn't going to do it at the house we lived in. Next step would be to hide it or go somewhere else like my vehicle, that would probably be the easiest clean up. Once I had the code, it might not have been tonight. I didn't want to make it seem like it was their fault. Today I had to say something. I didn't know if I would have been able to manage all the next parts. Pt reports that today he went to a brewery and called the crisisline. He said he felt guilty and terrible, because he asked for help, and did not want to use the crisis line staff's time. He said when he obtained the gun safe code he had a sense of peace or understanding that this is the plan that can help me to erase these negative feelings. Pt has a history of major depressive disorder and anxiety. He reports being prescribed sertraline 150mg by his PCP at [facility] for years. Prior to this medication has tried citalopram. He estimatestaking medication for anxiety or depression for at least 8 years. He is taking it as prescribed andreports he also tries to take his medication at the same time each night. He has a history of mental health therapy with no recent therapy. He reports not opening up to his therapist fully and said that he masks mental health symptoms. He has no history of inpatient hospitalization or EFFIE tx. His grandfather in September and he reports grieving. A close friend from suicide 10 years ago. Collateral from DEC: What happened today: Bebo lives with my and I. He came home pretty quiet today and went and got a beer. He went downstairs to play his drum set. I told him we were going to have dinner pretty quick. I gave him a 15 mn time, and it was 30 mn so I went to check on him. He didn't want to eat. He seemed like he was going to start crying or break down. He said he wanted to get in to the safe for one reason or another. I tried to get him to calm, he said I'm not doing well and he said he wanted access to the guns. He said he wanted to put his resignation in, saying he had a bad day at work. My brought the guns to her sister, 10 mn away. I talked to him, encouraged him to take deep breaths. He was saying it doesn't matter what I do, I'm just going to be down and out. My came home and he was in his room playing his drum set. We locked up kitchen knives, scissors, and secured car keys. He had a plan, intentions, and executed first steps of his plan. He said he reached out tothe crisis line but didn't seem like it helped. Me and my went into his room and asked him if his intention was to go in the safe (suicide) so we said we were going to take him to the hospital. What is different about patient's functioning: The last 7 days he has been really down and out. Grandfather passed about a month ago. We have lived together for most of our lives. He was very manic today. Psychiatric History: As documented in HPI, Impression, collateral information from chart review & family/friend/guardian, DEC assessment and as listed below (not exhaustive). Past Psychiatric Diagnosis: Anxiety and depression and substance use (beer and THC) Past Medication Trials: Zoloft 150 mg current Celexa Other Psychiatric History: none Trauma/Abuse history: None known Loss: grandfather in September, close friend from suicide 10 years ago Past Medical and Surgical History: PAST MEDICAL HISTORY: Past Medical History: Diagnosis Date Severe episode of recurrent major depressive disorder, without psychotic features (H) 12/01/2023 PAST SURGICAL HISTORY: Past Surgical History: Procedure Laterality Date RELEASE TETHERED SPINAL CORD,LUMBR 2007 [place], [place] Substance Use History: As documented in HPI, Impression, collateral information from chart review & family/friend/guardian, DEC assessment and as listed below (not exhaustive). Substance Use: Alcohol/ Beer and THC Family History: As documented in HPI, Impression, collateral information from chart review & family/friend/guardian, DEC assessment and as listed below (not exhaustive). Family psychiatric/mental health history includes: Per DEC - family hx of depression. Allergies and Medications: Allergies Allergen Reactions Amoxicillin-Pot Clavulanate Ceclor [Cefaclor] Hives Medications: Current Facility-Administered Medications Medication Dose Route Frequency Provider Last Rate Last Admin sertraline (ZOLOFT) tablet 100 mg 100 mg Oral At Bedtime Pierce Lorenzo MD 100 mg at 11/30/23 1269 Current Outpatient Medications Medication Sig Dispense Refill sertraline (ZOLOFT) 100 MG tablet Take 100 mg by mouth daily. 90 tablet 1 Mental Status Exam: Appearance: awake, alert, adequately groomed, and casually dressed, visible from the neck up on video Attitude: cooperative Eye Contact: limited Mood: anxious and depressed Affect: appropriate and in normal range and intensity is blunted Speech: clear, coherent Psychomotor Behavior: no evidence of tardive dyskinesia, dystonia, or tics Thought Process: linear Associations: no loose associations Thought Content: no evidence of psychotic thought and passive suicidal ideation present Insight: fair Judgment: limited Oriented to: time, person, and place Attention Span and Concentration: fair Recent and Remote Memory: intact Fund of Knowledge: appropriate Muscle Strength and Tone: unable to assess d/t virtual meeting Gait and Station: not observed. Physical Exam: BP (!) 127/90 (BP Location: Left arm, Patient Position: Semi-Moore's, Cuff Size: Adult Regular) Pulse 80 Temp 98.9 ??F (37.2 ??C) (Temporal) Resp 18 Ht 1.676 m (5' 6) Wt 80.6 kg (177 lb 11.1 oz) SpO2 100% BMI 28.68 kg/m?? Weight is 177 lbs 11.05 oz 5' 6 Body mass index is 28.68 kg/m??. Laboratory/Imaging: Recent Results (from the past 72 hour(s)) Comprehensive metabolic panel Collection Time: 11/30/23 11:10 PM Result Value Ref Range Sodium 138 135 - 145 mmol/L Potassium 4.0 3.4 - 5.3 mmol/L Carbon Dioxide (CO2) 21 (L) 22 - 29 mmol/L Anion Gap 18 (H) 7 - 15 mmol/L Urea Nitrogen 11.8 6.0 - 20.0 mg/dL Creatinine 0.83 0.67 - 1.17 mg/dL GFR Estimate >90 >60 mL/min/1.73m2 Calcium 9.6 8.8 - 10.4 mg/dL Chloride 99 98 - 107 mmol/L Glucose 93 70 - 99 mg/dL Alkaline Phosphatase 46 40 - 150 U/L AST 26 0 - 45 U/L ALT 26 0 - 70 U/L Protein Total 7.6 6.4 - 8.3 g/dL Albumin 5.0 3.5 - 5.2 g/dL Bilirubin Total 0.4 <=1.2 mg/dL Ethyl Alcohol Level Collection Time: 11/30/23 11:10 PM Result Value Ref Range Alcohol ethyl 0.09 (H) <=0.01 g/dL CBC with platelets and differential Collection Time: 11/30/23 11:10 PM Result Value Ref Range WBC Count 5.6 4.0 - 11.0 10e3/uL RBC Count 5.16 4.40 - 5.90 10e6/uL Hemoglobin 14.6 13.3 - 17.7 g/dL Hematocrit 43.5 40.0 - 53.0 % MCV 84 78 - 100 fL MCH 28.3 26.5 - 33.0 pg MCHC 33.6 31.5 - 36.5 g/dL RDW 12.4 10.0 - 15.0 % Platelet Count 219 150 - 450 10e3/uL % Neutrophils 51 % % Lymphocytes 42 % % Monocytes 6 % % Eosinophils 1 % % Basophils 1 % % Immature Granulocytes 0 % NRBCs per 100 WBC 0 <1 /100 Absolute Neutrophils 2.9 1.6 - 8.3 10e3/uL Absolute Lymphocytes 2.3 0.8 - 5.3 10e3/uL Absolute Monocytes 0.3 0.0 - 1.3 10e3/uL Absolute Eosinophils 0.0 0.0 - 0.7 10e3/uL Absolute Basophils 0.0 0.0 - 0.2 10e3/uL Absolute Immature Granulocytes 0.0 <=0.4 10e3/uL Absolute NRBCs 0.0 10e3/uL Asymptomatic COVID-19 Virus (Coronavirus) by PCR Nose Collection Time: 11/30/23 11:17 PM Specimen: Nose; Swab Result Value Ref Range SARS CoV2 PCR Negative Negative Urine Drug Screen Panel Collection Time: 12/01/23 9:19 AM Result Value Ref Range Amphetamines Urine Screen Negative Screen Negative Barbituates Urine Screen Negative Screen Negative Benzodiazepine Urine Screen Negative Screen Negative Cannabinoids Urine Screen Positive (A) Screen Negative Cocaine Urine Screen Negative Screen Negative Fentanyl Qual Urine Screen Negative Screen Negative Opiates Urine Screen Negative Screen Negative PCP Urine Screen Negative Screen Negative ROS: 10 point ROS neg other than the symptoms noted above in the HPI. I have reviewed the physical done by the ED provider on 11/30/2023. Notable changes include: none Impression: This patient is a 33 year old year old male with a past psychiatric history of substance use (alcohol and cannabis)., who presented to the ED on 11/30/2023 for SI. Prior to presenting to the ED Jeremiah been experiencing increased depression and SI. 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 He reports the stress level has increased since Covid and he spends all his free time prepping for class. He has guilt about taking time for himself. Significant symptoms are noted in the HPI. There is genetic loading for mood. Medical history does appear to be significant for spina bifida and neurogenic bladder. Substance use is playing a contributing role in the patient's presentation. He reports he drinks beer and using cannabis daily. Major s tressors are job stress and chronic depression and anxiety. . Patient appears to cope with stress/frustration/emotion by using substances, withdrawing, and acting out to self. Patient's support system includes family. Protective factors: family. Risk factors: SI, maladaptive coping, substance use, past behaviors, and job related stress . Patient Strengths: help seeking, engaging with ED treatmentteam, and willing to be admitted IP. Based on interview with patient and patient's guardian/parent, record review, conversations ED staff, P staff and ED attending, the patient meets criteria for MDD recurrent, severe.. Current medications are listed above. Recommended medication adjustments are listed below. Acute inpatient stabilization is needed as indicated by patient continues to have SI and needs medication stabilization andoutpatient treatment recommendations . Other recommendations are listed below. Risk for harm is elevated. Brief Therapeutic Intervention(s): Provided rappport building, active listening, unconditional positive regard, and validation. Legal Status: Voluntary Diagnoses: Principal Diagnosis: MDD recurrent, severe. Secondary psychiatric diagnoses of concern this admission: Unspecified Anxiety Polysubstance use: alcohol, cannabis, and nicotine. Current medical diagnosis being treated: Spina bifida of lumbosacral region without hydrocephalus Neurogenic bladder Recommendations: Communicated the case and data analyst report writer's recommendations with Dr Ang Hernandez MD, ED provider, via [employer] secure messaging. Recommend acute inpatient stabilization based on patient continues to have SI and needs medication stabilization and outpatient treatment recommendations . 2. Recommend increasing sertraline to 150 mg daily for better efficacy 3. Start: Melatonin 5 mg hs for insomnia Hydroxyzine 25 mg tid prn for anxiety Nicotine lozenges 2 mg every 1 hour for cravings. 4. Consider obtaining a CD evaluation 5. Continue to consult psychiatry as needed. Please call [facility] at [phone] if you have follow-up questions or wish to place another consult. Attestation Attestation: Patient time: 25 minutes Reviewed labs, EKG, and relevant imagin minutes Family/guardian/other time: 0 minutes Team time:20 minutes Chart review: 40 minutes Documentation: 40 minutes Total time: 125 minutes spent on the date of the encounter. I have provided critical care services at the bedside virtually in the [facility] emergency department, evaluating the patient, reviewing notes and laboratory values and directing care. I have discussed recommendation regarding whether or not hospitalization is needed and recommendations for medications and laboratory testing with the attending emergency department provider. Mia Cooney, JOSE, MARINE EXTENSION AGENT, ENAMEL FINISHER December 01, 2023. Disclaimer: This note consists of symbols derived from keyboarding, dictation, and/or voice recognition software. As a result, there may be errors in the script that have gone undetected. Please consider this when interpreting information found in the chart. * Krupa Mejia, BREAKDOWN MAN - 11/30/2023 9:16 PM CDTAssociated Order(s): DIAGNOSTIC EVALUATION CENTER (DEC) ASSESSMENT ORDER Summary: DEC assessment Diagnostic Evaluation Consultation Crisis Assessment Patient Name: Enmanuel Elmore Age: [age] year old Legal Sex: male Gender Identity: male Pronouns: Race: White Ethnicity: Not or Language: Polish Patient was assessed: Virtual: GoSave Crisis Assessment Start Date: 11/30/23 Crisis Assessment Start Time: 2131 Crisis Assessment Stop Time: 2228 Patient location: [facility] ED04 Referral Data and Chief Complaint Enmanuel Elmore presents to the ED with family/friends. Patient is presenting to the ED for the following concerns: Suicidal ideation, Worsening psychosocial stress, Anxiety, Depression. Factors that make the mental health crisis life threatening or complex are: Patient presents to the ED with his brother and sister in-law, who he resides with. 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 He reports feeling hopeless and has had difficulty finding things that bring him dasha, including activities that he normally enjoys such as playing musical instruments. He has a low appetite, eating a meal once per day. He estimates sleeping 6 hours per night, noting that anxiety is causing sleep pr oblems. He reports having anxiety and racing thoughts about the next day. He drinks 5 beers per night (4:30pm-9:30pm) and vapes marijuana 2x per day. He denies HI and hallucinations. He had SIB todayby cutting his arm with a pocket knife. Prior to this, his last SIB was 5 years ago by burning himself. His brother owns guns and pt has been trying to figure out the code to the gun safe (trying familiar #'s such as birthdays). He developed a plan to get the gun safe code by telling his brother that he wanted to store thomas in it. He endorses a plan and intent of suicide by gun and obtained the gun safe code today. He has been planning suicide for a couple of weeks stating he was considering how would I do it without causing a big scene. I really was trying to be pretty sneaky in getting thecode. He said the next step would be to get the weapon out and where do you place it on your mandaen, aim it lower or higher, what is going to cause the deed that you are going to do, with the leastamount of pain or evidence. I wasn't going to do it at the house we lived in. Next step would be tohide it or go somewhere else like my vehicle, that would probably be the easiest clean up. Once I had the code, it might not have been tonight. I didn't want to make it seem like it was their fault. Today I had to say something. I didn't know if I would have been able to manage all the next parts.Pt reports that today he went to a brewery and called the crisis line. He said he felt guilty andterrible, because he asked for help, and did not want to use the crisis line staff's time. He said when he obtained the gun safe code he had a sense of peace or understanding that this is the planthat can help me to erase these negative feelings. Informed Consent and Assessment Methods Explained the crisis assessment process, including applicable information disclosures and limits toconfidentiality, assessed understanding of the process, and obtained consent to proceed with the assessment. Assessment methods included conducting a formal interview with patient, review of medical records, collaboration with medical staff, and obtaining relevant collateral information from familyand community providers when available. : done Patient response to interventions: acceptance expressed, verbalizes understanding Coping skills were attempted to reduce the crisis: Today patient called the crisis line however he said he felt guilty and terrible for using the crisis line's time. He also talked with his brother and sister in-law rodger. History of the Crisis Pt has a history of major depressive disorder and anxiety. He reports being prescribed sertraline 150mg by his PCP at [facility] for years. Prior to this medication has tried citalopram. He estimatestaking medication for anxiety or depression for at least 8 years. He is taking it as prescribed andreports he also tries to take his medication at the same time each night. He has a history of mental health therapy with no recent therapy. He reports not opening up to his therapist fully and said that he masks mental health symptoms. He has no history of inpatient hospitalization or EFFIE tx. His grandfather in September and he reports grieving. A close friend from suicide 10 years ago. Brief Psychosocial History Family: , Children Support System: Sibling(s), Other (specify), Parent(s) (sister in-law) Employment Status: employed full-time Source of Income: salary/wages Financial Environmental Concerns: none Current Hobbies: music Barriers in Personal Life: mental health concerns Significant Clinical History Current Anxiety Symptoms: excessive worry, anxious, racing thoughts Current Depression/Trauma: helplessness, hopelessness, sadness, excessive guilt, thoughts of /suicide, withdrawal/isolation, low self esteem Current Somatic Symptoms: racing thoughts, anxious, excessive worry Current Psychosis/Thought Disturbance: Current Eating Symptoms: loss of appetite Chemical Use History: Alcohol: Daily Last Use:: 11/30/23 Benzodiazepines: None Opiates: None Cocaine: None Marijuana: Daily Other Use: None Past diagnosis: Anxiety Disorder, Depression Family history: Depression Past treatment: Individual therapy, Primary Care Details of most recent treatment: Pt is currently working with a PCP for medication management and reports taking medication as prescribed. He is not currently working with a therapist. Other relevant history: Collateral Information Is there collateral information: Yes Collateral information name, relationship, phone number: Jaciel Elmore, brother [phone] What happened today: Bebo lives with my and I. He came home pretty quiet today and went and got a beer. He went downstairs to play his drum set. I told him we were going to have dinner pretty quick. I gave him a 15 mn time, and it was 30 mn so I went to check on him. He didn't want to eat. He seemed like he was going to start crying or break down. He said he wanted to get in to the safe for one reason or another. I tried to get him to calm, he said I'm not doing well and he said he wanted access to the guns. He said he wanted to put his resignation in, saying he had a bad day at work. My brought the guns to her sister, 10 mn away. I talked to him, encouraged him to take deep breaths. He was saying it doesn't matter what I do, I'm just going to be down and out. My came home and he was in his room playing his drum set. We locked up kitchen knives, scissors, and secured car keys. He had a plan, intentions, and executed first steps of his plan. He said he reached out [facility] crisis line but didn't seem like it helped. Me and my went into his room and asked him if his intention was to go in the safe (suicide) so we said we were going to take him to the hospital. What is different about patient's functioning: The last 7 days he has been really down and out. Grandfather passed about a month ago. We have lived together for most of our lives. He was very manic today. Concern about alcohol/drug use: Yes Has patient made comments about wanting to kill themselves/others: yes If d/c is recommended, can they take part in safety/aftercare planning: yes Additional collateral information: Drinks 1-5 beers per evening. Still functioning and getting things done. Occasionally uses recreational marijuana- using it as a crutch especially in the past 3 months. Marijuana is not out of control, but not in the right step. Risk Assessment [place] Suicide Severity Rating Scale Full Clinical Version: Suicidal Ideation Q6 Suicide Behavior (Lifetime): yes [place] Suicide Severity Rating Scale Recent: 12/01/23 Suicidal Ideation (Recent) Q1 Wished to be (Past Month): yes Q2 Suicidal Thoughts (Past Month): yes Q3 Suicidal Thought Method: yes (got code to gun safe, method considered was to shoot himself in his car. Thought about overdosing on cocaine but thinks shooting himself is the more likely plan) Q4 Suicidal Intent without Specific Plan: no Q5 Suicide Intent with Specific Plan: yes If yes to Q6, within past 3 months?: yes Level of Risk per Screen: high risk Intensity of Ideation (Recent) Most Severe Ideation Rating (Past 1 Month): 4 Frequency (Past 1 Month): 2-5 times in week (scheming plan of getting the code (gun safe) for a couple of weeks) Controllability (Past 1 Month): Can control thoughts with a lot of difficulty (I feel like I'm at my rock bottom. But I feel that other people can take notice. I can have more people to support me. Last couple of weeks it has been pretty hard to move on from.) Deterrents (Past 1 Month): Deterrents most likely did not stop you (family are a protective factor but he feels guilty for SI due to caring about his family) Reasons for Ideation (Past 1 Month): Completely to end or stop the pain (You couldn't go on living with the pain or how you were feeling) (In some cases, I've lost hope on myself. I don't have hope for things to get better in my life. I lack self confidence, personal goals, I feel like I'm treading water, making it pay check to paycheck) Suicidal Behavior (Recent) Actual Attempt (Past 3 Months): No Has subject engaged in non-suicidal self-injurious behavior? (Past 3 Months): Yes (SIB cut self on arm with pocket knife today) Interrupted Attempts (Past 3 Months): No Aborted or Self-Interrupted Attempt (Past 3 Months): No Preparatory Acts or Behavior (Past 3 Months): Yes (Getting gun safe code, planned where he could shoot himself so it would not be messy or hurt his family as much (in his car, not in the family home). Started a [employer] Document but didn't write anything in it. Put in subject line family) Environmental or Psychosocial Events: loss of a loved one, helplessness/hopelessness, ongoing abuseof substances Protective Factors: Protective Factors: strong hobson to family unit, community support, or employment, lives in a responsibly safe and stable environment, able to access care without barriers, help seeking Does the patient have thoughts of harming others? Feels Like Hurting Others: no Previous Attempt to Hurt Others: no Is the patient engaging in sexually inappropriate behavior?: no Is the patient engaging in sexually inappropriate behavior? no Mental Status Exam Affect: Blunted Appearance: Appropriate Attention Span/Concentration: Attentive Eye Contact: Engaged Fund of Knowledge: Appropriate Language /Speech Content: Fluent Language /Speech Volume: Normal Language /Speech Rate/Productions: Normal Recent Memory: Intact Remote Memory: Intact Mood: Depressed Orientation to Person: Yes Orientation to Place: Yes Orientation to Time of Day: Yes Orientation to Date: Yes Situation (Do they understand why they are here?): Yes Psychomotor Behavior: Normal Thought Content: Suicidal Thought Form: Intact Medication Psychotropic medications: Medication Orders - Psychiatric (From admission, onward) Start Dose/Rate Route Frequency Ordered Stop 11/30/232304 sertraline (ZOLOFT) tablet 100 mg 100 mg Oral AT BEDTIME 11/30/23 230 Current Care Team Patient Care Team: Cullen Gonzales MD as PCP - General (Family Medicine) Diagnosis Patient Active Problem List Diagnosis Code Irritable bowel syndrome with constipation K58.1 Recurrent major depressive disorder, in partial remission (H) F33.41 Anxiety F41.9 Neurogenic bladder N31.9 Self-catheterizes urinary bladder Z78.9 Chronic idiopathic constipation K59.04 Tethered cord (H) Q06.8 Severe episode of recurrent major depressive disorder, without psychotic features (H) F33.2 Primary Problem This Admission Active Hospital Problems F33.2 *Severe episode of recurrent major depressive disorder, without psychotic features (H) F41.9 Anxiety Clinical Summary and Substantiation of Recommendations It is the recommendation of this clinician that the pt be admitted to [facility] for safety and stabilization. Pt endorses SI with a plan, means, and intent to by suicide using a gun. He told his family about the intent today. For the past couple of weeks, he has been working out the details of his suicide plan. He said that obtaining the gun safe code today brought a sense of peace and understanding that he was a step closer to erasing negative feelings. Today he had SIB by cutting his arm with a pocket knife. Prior to today, his last SIB was 5 years ago by burning himself. He reports dailyalcohol and marijuana use. He is taking medication as prescribed by his PCP however does not have other mental health outpatient support. Therapeutic intervention in the ER has not lessened intensityof SI and pt has been unable to engage in safety planning. Pt has limited protective factors and several risk factors for suicide. For this reason, a secure setting with 24 hour supervision is the most appropriate and least restrictive option available for the pt. While pt remains in the ED, Extended Care will follow. Therapeutic work should continue, and disposition can re-evaluated if pt's level of immediate risk lowers and they can meaningfully engage in safety planning. Imminent risk of harm: Suicidal Behavior Severe psychiatric, behavioral or other comorbid conditions are appropriate for management at inpatient mental health as indicated by at least one of the following: Psychiatric Symptoms, Impaired impulse control, judgement, or insight Situation and expectations are appropriate for inpatient care: Patient management/treatment at lower level of care is not feasible or is inappropriate, [id number] medical and nursing care to address symptoms and initiate intervention is required Inpatient mental health services are necessary to meet patient needs and at least one of the following: Specific condition related to admission diagnosis is present and judged likely to further improve at proposed level of care, Specific condition related to admission diagnosis is present and judged likely to deteriorate in absence of treatment at proposed level of care Patient coping skills attempted to reduce the crisis: Today patient called the crisis line however he said he felt guilty and terrible for using the crisis line's time. He also talked with his brother and sister in-law rodger. Disposition Recommended disposition: Inpatient Mental Health Reviewed case and recommendations with attending provider. Attending Name: Dr. Lorenzo Attending concurs with disposition: yes Patient and/or validated legal guardian concurs with disposition: yes Final disposition: inpatient mental health Legal status on admission: Voluntary/Patient has signed consent for treatment Assessment Details Total duration spent with the patient: 57 min CPT code(s) utilized: 52503 - Psychotherapy for Crisis - 60 (30-74*) min ADILSON Gonzalez, Psychotherapist [facility] - Triage & Transition Services Callback: [phone] documented in this encounter ED Notes * Darien Garcia MD - 12/02/2023 12:57 PM CDT Reassessed by her mental health professional clinical picture stable enough for discharge home. Outpatient medications ordered, outpatient appointments completed. ICD-10-CM 1. Suicidal ideation R45.851 MD Jose Washington Jerome Richard, MD 12/02/23 1257 * Jacy Hernandez RN - 12/02/2023 12:13 PM CDT Meal tray delivered * Jacy Hernandez RN - 12/02/2023 11:42 AM CDT Pt reports diarrhea since 2 AM- Running to bathroom again * Jacy Hernandez RN - 12/02/2023 11:22 AM CDT DEC speaking with pt and family * aJcy Hernandez RN - 12/02/2023 10:12 AM CDT Pt speaking with psychiatry * Jacy Hernandez RN - 12/02/2023 9:19 AM CDT Pt requesting medication he had last night d/t increased feeling of edginess. * Jacy Hernandez RN - 12/02/2023 9:18 AM CDT Rn spoke with family and pt re: plan. Family is asking to be able to take pt home and stay with him. * Jacy Hernandez RN - 12/02/2023 8:44 AM CDT Breakfast tray delivered * Estephania Joya RN - 12/02/2023 6:25 AM CDT [facility] Mental Health Handoff Note Voluntary but holdable Does patient require 1:1? Yes Hold and rights been given and documented for patient: Yes Is the patient in BH scrubs? No -Pt declines when RN offer BH scrubs. Has the patient been searched? Yes Is the 15 minute observation tool up to date? Yes Was patient issued a welcome folder? Yes Room check completed this shift: Yes PSS3 and [place] Assessment/Reassessment this shift: C-SSRS ([place]) Date and Time Q1 Wished to be (Past Month) Q2 Suicidal Thoughts (Past Month) Q3 Suicidal Thought Method Q4 Suicidal Intent without Specific Plan Q5 Suicide Intent with Specific Plan Q6 Suicide Behavior (Lifetime) If yes to Q6, within past 3 months? Level of Risk per Screen Level of Risk per Screen User 11/30/232156 1-->yes 1-->yes 1-->yes 0-->no 1-->yes -- 1-->yes -- high risk HMP 11/30/232026 1-->yes 1-->yes 1-->yes 0-->no 1-->yes 1-->yes 0-->no -- high risk KMA Behavioral status of patient: Green Code 21 called this shift? No Use of restraints/seclusion this shift? No Most recent vital signs: Temp: 98.9 ??F (37.2 ??C) Temp src: Temporal BP: (!) 127/90 Pulse: 80 Resp: 18 SpO2: 100 % O2 Device: None (Room air) Medications: Scheduled medication compliance? Yes PRN Meds administered this shift? No Medications sertraline (ZOLOFT) tablet 150 mg (150 mg Oral $Given 12/02/23 0223) melatonin tablet 5 mg (has no administration in time range) hydrOXYzine HCl (ATARAX) tablet 25 mg (25 mg Oral $Given 12/01/23 1518) nicotine (COMMIT) lozenge 2 mg (has no administration in time range) nicotine (COMMIT) lozenge 4 mg (4 mg Buccal $Given 12/01/23 1229) ADLs Meal Provided this shift? Yes Hygiene items provided? Yes ADLs completed? Yes Date of last shower: [employer] Any significant events this shift? No Any information that would be helpful in caring for this patient? Family present/updated? No Location of patient's belongings: DEC Critical Care Minutes: Does the patient need critical care minutes documented? No * Estephania Joya RN - 12/02/2023 3:56 AM CDT Pt soiled his pants. Placed in a plastic bag inside pt room, States his family might take it this morning. Offered to wear MH scrubs, pt declined asked for his belonging to get a new pants/shorts. * Estephania Joya RN - 12/02/2023 2:27 AM CDT Pt went out to his room and ask for his urine catheter in his belongings. Pt went back to his room after urination, Sertraline given, RN offered sandwich and water. * Dotty Fry RN - 12/01/2023 3:25 PM CDT Patient came out of the room agitated, stating I really need something, I'm freaking out, I can't do this anymore, I wanna leave. I offered pt anxiety medication, which he accepted. Pt stated he would like to take a shower. I explained that we might not have enough staff right now to be able to take him for a shower, but patient accepted bath wipes. I also asked patient if there is anything else I can provide to make him feel more comfortable and at ease, patient declined. Parents present at bedside. * Ang Hernandez MD - 12/01/2023 1:59 PM CDT Patient is medically clear for inpatient psychiatric admission. Ang Hernandez MD 12/01/23 1400 * Katja Quintero LICSW - 12/01/2023 12:37 PM CDT Summary: RARS score IP MH Referral Acuity Rating Score (RARS) LMHP complete at referral to IP MH, with DEC; and, daily while awaiting IP MH placement. Call scoreto PPS. CRITERIA SCORING New 72 HH and Involuntary for IP MH (not adolescent) 0/1 Boarding over 24 hours 1/1 Vulnerable adult at least 55+ with multiple co morbidities; or, Patient age 11 or under 0/1 Suicide ideation without relief of precipitating factors 1/1 Current plan for suicide 1/1 Current plan for homicide 0/1 Imminent risk or actual attempt to seriously harm another without relief of factors precipitating the attempt 0/1 Severe dysfunction in daily living (ex: complete neglect for self care, extreme disruption in vegetative function, extreme deterioration in social interactions) 0/1 Recent (last 2 weeks) or current physical aggression in the ED 0/1 Restraints or seclusion episode in ED 0/1 Verbal aggression, agitation, yelling, etc., while in the ED 0/1 Active psychosis with psychomotor agitation or catatonia 0/1 Need for constant or near constant redirection (from leaving, from others, etc). 0/1 Intrusive or disruptive behaviors 0/1 TOTAL Acuity Total Score: 3 * Elle Jennings RN - 12/01/2023 10:57 AM CDT [facility] Mental [facility] Handoff Note Voluntary but holdalbe Does patient require 1:1? Yes Hold and rights been given and documented for patient: No Is the patient in BH scrubs? No -politely decline Has the patient been searched? Yes Is the 15 minute observation tool up to date? Yes Was patient issued a welcome folder? Yes Room check completed this shift: Yes PSS3 and [place] Assessment/Reassessment this shift: C-SSRS ([place]) Date and Time Q1 Wished to be (Past Month) Q2 Suicidal Thoughts (Past Month) Q3 Suicidal Thought Method Q4 Suicidal Intent without Specific Plan Q5 Suicide Intent with Specific Plan Q6 Suicide Behavior (Lifetime) If yes to Q6, within past 3 months? Level of Risk per Screen Level of Risk per Screen User 11/30/232156 1-->yes 1-->yes 1-->yes 0-->no 1-->yes -- 1-->yes -- high risk HMP 11/30/232026 1-->yes 1-->yes 1-->yes 0-->no 1-->yes 1-->yes 0-->no -- high risk KMA Behavioral status of patient: Green Code 21 called this shift? No Use of restraints/seclusion this shift? No Most recent vital signs: Temp: 98.9 ??F (37.2 ??C) Temp src: Temporal BP: (!) 127/90 Pulse: 80 Resp: 18 SpO2: 100 % O2 Device: None (Room air) Medications: Scheduled medication compliance? Yes PRN Meds administered this shift? No Medications sertraline (ZOLOFT) tablet 100 mg (100 mg Oral $Given 11/30/23 4815) ADLs Meal Provided this shift? Yes Hygiene items provided? Yes ADLs completed? Yes Date of last shower: [employer] Any significant events this shift? No Any information that would be helpful in caring for this patient? Family present/updated? Yes Location of patient's belongings: DEC office Critical Care Minutes: Does the patient need critical care minutes documented? No * Katja Sparks RN - 12/01/2023 5:44 AM CDT [facility] Mental Health Handoff Note Voluntary but holdable Does patient require 1:1? Yes Hold and rights been given and documented for patient: No Is the patient in scrubs? No -patient searched. No scrub pants available. Has the patient been searched? Yes Is the 15 minute observation tool up to date? Yes Was patient issued a welcome folder? Yes Room check completed this shift: Yes PSS3 and [place] Assessment/Reassessment this shift: C-SSRS ([place]) Date and Time Q1 Wished to be (Past Month) Q2 Suicidal Thoughts (Past Month) Q3 Suicidal Thought Method Q4 Suicidal Intent without Specific Plan Q5 Suicide Intent with Specific Plan Q6 Suicide Behavior (Lifetime) If yes to Q6, within past 3 months? Level of Risk per Screen Level of Risk per Screen User 11/30/232156 1-->yes 1-->yes 1-->yes 0-->no 1-->yes -- 1-->yes -- high risk HMP 11/30/232026 1-->yes 1-->yes 1-->yes 0-->no 1-->yes 1-->yes 0-->no -- high risk KMA Behavioral status of patient: Green Code 21 called this shift? No Use of restraints/seclusion this shift? No Most recent vital signs: Temp: 98.2 ??F (36.8 ??C) Temp src: Temporal BP: (!) 129/103 Pulse: 88 Resp: 20 SpO2: 100 % O2 Device: None (Room air) Medications: Scheduled medication compliance? Yes PRN Meds administered this shift? No Medications sertraline (ZOLOFT) tablet 100 mg (100 mg Oral $Given 11/30/23 9957) ADLs Meal Provided this shift? Yes Hygiene items provided? Yes ADLs completed? Yes Date of last shower: [employer] Any significant events this shift? No Any information that would be helpful in caring for this patient? Family present/updated? No Location of patient's belongings: DEC office Critical Care Minutes: Does the patient need critical care minutes documented? No * Krupa Mejia LICSW - 11/30/2023 10:55 PM CDTSummary: RARS score IP MH Referral Acuity Rating Score (RARS) LMHP complete at referral to IP MH, with DEC; and, daily while awaiting IP MH placement. Call scoreto PPS. CRITERIA SCORING New 72 HH and Involuntary for IP MH (not adolescent) 0/1 Boarding over 24 hours 0/1 Vulnerable adult at least 55+ with multiple co morbidities; or, Patient age 11 or under 0/1 Suicide ideation without relief of precipitating factors 1/1 Current plan for suicide 1/1 Current plan for homicide 0/1 Imminent risk or actual attempt to seriously harm another without relief of factors precipitating the attempt 0/1 Severe dysfunction in daily living (ex: complete neglect for self care, extreme disruption in vegetative function, extreme deterioration in social interactions) 0/1 Recent (last 2 weeks) or current physical aggression in the ED 0/1 Restraints or seclusion episode in ED 0/1 Verbal aggression, agitation, yelling, etc., while in the ED 0/1 Active psychosis with psychomotor agitation or catatonia 0/1 Need for constant or near constant redirection (from leaving, from others, etc). 0/1 Intrusive or disruptive behaviors 0/1 TOTAL Acuity Total Score: 2 * Rl Queen RN - 11/30/2023 9:17 PM CDT dried yeast supervisor notified of high risk suicidal pt and need for 1:1 * Rl Queen RN - 11/30/2023 8:46 PM CDT Pt belongings placed in DEC office. Pt searched and wanded by security. * Pierce Lorenzo MD - 11/30/2023 8:33 PM CDT Emergency Department Note History of Present Illness Chief Complaint Suicidal HPI Enmanuel Elmore is a 33 year old male with history of major depressive disorder, tethered cord, and anxiety who presents to the ED with his brother and [id number]-eiu (also his roommates) for evaluation of suicidal ideation. The patient reports they own guns at home and he had a strategic plan to get the code to the gun safe. He was able to get the code and states this was the point where he could decide to see tomorrow. Enmanuel says he broke down and years of stress culminated in the lowest point of his life/rock bottom. He has never felt like this before and states he has been masking emotions for years. Patient does know how to set up and use the guns but has not loaded one. He drinks every day, generally 4 to 5 beers a night for years now. He also smokes THC pens and nicotine Juuls. History of cutting, self harm, and cocaine use. Enmanuel reports he has never experienced alcohol withdrawal or withdrawal seizure as he has been drinking for as long as he can remember. No previous hospitalizations for alcohol use or mental health. Denies fever, nausea, vomiting, cough, chest pain, or abdominal pain. 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 He has seen a psychotherapist but has never truly opened up to them. Independent Historian None Review of External Notes None Past Medical History Medical History and Problem List Irritable bowel syndrome Major depressive disorder Anxiety Neurogenic bladder Chronic idiopathic constipation Tethered cord Neurogenic bowel Spina bifida Medications Sertraline Surgical History Release tethered spinal cord, lumbar Physical Exam Patient Vitals for the past 24 hrs: BP Temp Temp src Pulse Resp SpO2 Height Weight 11/30/232025 (!) 148/120 98.2 ??F (36.8 ??C) Temporal 98 20 100 % 1.676 m (5' 6) 80.6 kg (177 lb 11.1 oz) Physical Exam Vitals and nursing note reviewed. Constitutional: General: He is not in acute distress. Appearance: He is not ill-appearing. HENT: Head: Normocephalic and atraumatic. Right Ear: External ear normal. Left Ear: External ear normal. Nose: Nose normal. Eyes: Conjunctiva/sclera: Conjunctivae normal. Cardiovascular: Rate and Rhythm: Normal rate and regular rhythm. Heart sounds: No murmur heard. Pulmonary: Effort: Pulmonary effort is normal. No respiratory distress. Breath sounds: No wheezing, rhonchi or rales. Abdominal: General: Abdomen is flat. There is no distension. Palpations: Abdomen is soft. Tenderness: There is no abdominal tenderness. There is no guarding or rebound. Musculoskeletal: General: No swelling or deformity. Cervical back: Normal range of motion and neck supple. Skin: General: Skin is warm and dry. Findings: No rash. Neurological: Mental Status: He is alert and oriented to person, place, and time. Psychiatric: Mood and Affect: Mood is depressed. Behavior: Behavior normal. Thought Content: Thought content includes suicidal ideation. Thought content includes suicidal plan. Diagnostics Lab Results Labs Ordered and Resulted from Time of ED Arrival to Time of ED Departure - No data to display Imaging No orders to display Independent Interpretation None ED Course Medications Administered Medications - No data to display Procedures Procedures Discussion of Management ED Mental Health, Krupa ED Course ED Course as of 11/30/232257 Nov 30, [id number] I obtained history and examined the patient as noted above. Additional Documentation None Medical Decision Making / Diagnosis [facility] Diagnoses: None MIPS None MDM Enmanuel Elmore is a 33 year old male who presents with suicidal thoughts. Patient had a very worrisome plan to gain access to firearms in his house his gun safe. He was planning to shoot himself but decided to come forward to his family about his plan and then they prompted him to come to the ER. He admits to some alcohol use tonight. He is certainly high risk for suicide so he was placed on asuicide watch and the mental health tannery worker was consulted and evaluated the patient. She recommended inpatient admission and I agree with this. Patient is currently voluntary but will certainlybe holdable if he decides that he wants to leave. We will check basic labs in anticipation of placement. We will reconcile his home medications and continue them here. Patient was endorsed to Dr. Gambino at the end of my shift pending inpatient psych placement. Disposition Care of the patient was transferred to my colleague Dr. Gambino pending DEC assessment. Diagnosis ICD-10-CM 1. Suicidal ideation R45.851 Discharge Medications New Prescriptions No medications on file Scribe Disclosure: I, Norma Peñaloza, am serving as a scribe at 9:06 PM on 11/30/2023 to document services personallyperformed by Pierce Lorenzo MD based on my observations and the provider's statements to me. Pierce Lorenzo MD 11/30/23 2258 * Chano Garcia RN - 11/30/2023 8:28 PM CDT Bed: ED04 Expected date: Expected time: Means of arrival: Comments: MH Only * Callie You RN - 11/30/2023 8:27 PM CDT Presents with brother and sister in law, was attempting to get code to gun safe today. Recurring negative thoughts Brother endorses hx of suicidal ideation. Triage Assessment (Adult) Row Name 11/30/232025 Triage Assessment Airway WDL WDL Respiratory WDL Respiratory WDL WDL documented in this encounter Miscellaneous Notes * Pharmacy-Admission Medication History - Jelly Zavala RPH - 12/01/2023 7:47 AM CDT Pharmacist Admission Medication History Admission medication history is complete. The information provided in this note is only as accurateas the sources available at the time of the update. Information Source(s): Patient via in-person Pertinent Information: Pt states sertraline originally prescribed as 1.5 100mg tablet, but he has just been taking 1 tablet every evening. Changes made to [employer] medication list: Added: None Deleted: Zofran Changed: sertraline 50mg tabs --> 100mg tabs Allergies reviewed with patient and updates made in EHR: yes Medication History Completed By: Jelly Zavala RPH 12/01/2023 7:47 AM [employer] Med List Medication Sig Last Dose sertraline (ZOLOFT) 100 MG tablet Take 100 mg by mouth daily. 11/30/2023 at pm * Plan of Care - Jovanafrancesca Krupa, [facility] - 11/30/2023 11:01 PM CDTSummary: plan of care Enmanuel Elmore December 01, 2023 Plan of Care Hand-off Note Patient Care Path: inpatient mental health Plan for Care: It is the recommendation of this clinician that the pt be admitted to [facility] for safety and stabilization. Pt endorses SI with a plan, means, and intent to by suicide using a gun. He told his family about the intent today. For the past couple of weeks, he has been working out the details of his suicide plan. He said that obtaining the gun safe code today brought a sense of peace and understanding that he was a step closer to erasing negative feelings. Today he had SIB by cutting his arm with a pocket knife. Prior to today, his last SIB was 5 years ago by burning himself. He reports dailyalcohol and marijuana use. He is taking medication as prescribed by his PCP however does not have other mental health outpatient support. Therapeutic intervention in the ER has not lessened intensityof SI and pt has been unable to engage in safety planning. Pt has limited protective factors and several risk factors for suicide. For this reason, a secure setting with 24 hour supervision is the most appropriate and least restrictive option available for the pt. While pt remains in the ED, Extended Care will follow. Therapeutic work should continue, and disposition can re-evaluated if pt's level of immediate risk lowers and they can meaningfully engage in safety planning. Identified Goals and Safety Issues: Goal is for patient to decrease mental health symptoms so he can be safe in the community. He has been planning to by suicide using a gun and today he obtainedthe code to his brother's gun safe, with intent of suicide. His family has now removed the guns from the home. He had SIB today by cutting himself on the upper arm with a pocket knife. He has a hx ofSIB by burning himself, last SIB prior to today was 5 years ago. He considered a secondary plan of suicide by cocaine overdose. He reports feeling guilty for using the crisis line today. Overview: Brenda Elmore, Mother [phone] Jaciel Elmore, brother/roommate [phone] Legal Status: Legal Status at Admission: Voluntary/Patient has signed consent for treatment Psychiatry Consult: Yes Updated provider regarding plan of care. ADILSON Gonzalez documented in this encounter Plan of Treatment Not on file documented as of this encounter Procedures Procedure Name Priority Date/Time Associated Diagnosis Comments URINE DRUG SCREEN STAT 12/01/2023 9:1 9 AM CDT URINE DRUG SCREEN PANEL STAT 12/01/2023 9:19 AM CDT COVID-19 VIRUS (CORONAVIRUS) BY PCR STAT 11/30/2023 11:17 PM CDT CBC WITH PLATELETS AND DIFFERENTIAL STAT 11/30/2023 11:10 PM CDT CBC WITH PLATELETS & DIFFERENTIAL STAT 11/30/2023 11:10 PM CDT COMPREHENSIVE METABOLIC PANEL STAT 11/30/2023 11:10 PM CDT ETHYL ALCOHOL LEVEL STAT 11/30/2023 1 1:10 PM CDT documented in this encounter Results * (ABNORMAL) Urine Drug Screen Panel (12/01/2023 9:19 AM CDT) [facility] Amphetamines Urine Screen Negative Screen Negative 12/01/2023 10:11 AM CDT [facility] Comment:Cutoff for a negativ e amphetamine is less than 500 ng/mL. Barbituates Urine Screen Negative Screen Negative 12/01/2023 10:11 AM CDT [facility] Comment:Cutoff for a negativ e barbiturate [...] [facility] Comment:Cutoff for a negativ e PCP is less than 25 ng/mL. Urine URINE SPECIMEN FROM URINARY CONDUIT / Unknown Non-blood Collection / Unknown 12/01/2023 9:19 AM CDT 12/01/2023 9:24 AM CDT Pierce Lorenzo MD LAB - URINE ORDERABL [facility] [address] (1st floor, no room number) [place] [address] * Asymptomatic COVID-19 Virus (Coronavirus) by PCR Nose (11/30/2023 11:17 PM CDT) SARS CoV2 PCR Negative Negative 11/30/2023 11:59 PM CDT LABORATORY Comment:NEGATIVE: SARS-CoV-2 (COVID-19) RNA not detected, presumed negative. Swab NASAL STRUCTURE / Unknown Non-blood Collection / Unknown 11/30/2023 11:17 PM CDT 11/30/2023 11:19 PM CDT Narrative LABORATORY - 11/30/2023 11:59 PM CDT Testing was performed using the Xpert Xpress SARS-CoV-2 Assay on the [employer]. Additional information about this assay [...] suggests COVID-19. This test was validated by [employer]. These Laboratories are certified under the ??Clinical Laboratory Improvement Amendments (CLIA) as qualified to perform high complexity testing. Pierce Lorenzo MD LAB - MICRO GENERAL ORDERABLES [facility] [address] (1st floor, no room number) [place] [address], [facility] * CBC with platelets and differential [...] LAB - BLOOD ORDERABL ES [facility] [address] [facility] (1st floor, no room number) [place] [address], [facility] * (ABNORMAL) Ethyl Alcohol Level (11/30/2023 11:10 PM CDT) Alcohol ethyl 0.09(H) <=0.01 g/dL 11/30/2023 11:39 PM CDT [facility] Blood BLOOD SPECIMEN / Unknown Venipuncture / Unknown 11/30/2023 11:10 PM CDT 11/30/2023 11:19 PM CDT Pierce Lorenzo MD LAB - BLOOD ORDERABL ES [facility] [address] (1st floor, no room number) [place] [address], [facility] * (ABNORMAL) Comprehensive metabolic panel (11/30/2023 11:10 PM CDT) Sodium 138 135 - 145 mmol/L 11/30/2023 11:39 PM CDT [facility] Potassium 4.0 3.4 - 5.3 mmol/L 11/30/2023 11:39 PM CDT [facility] Carbon Dioxide (CO2) 21(L) 22 - 29 mmol/L 11/30/2023 11:39 PM CDT LABORATORY Anion Gap 18(H) 7 - 15 mmol/L 11/30/2023 11:39 PM CDT [facility] Urea Nitrogen 11.8 6.0 - 20.0 mg/dL 11/30/2023 11:39 PM CDT [facility] Creatinine 0.83 0.67 - 1.17 mg/dL 11/30/2023 11:39 PM CDT [facility] GFR Estimate >90 >60 mL/min/1.7 3m2 11/30/2023 11:39 PM CDT [facility] Comment:eGFR calculated usin 2020 CKD-EPI equation. Calcium 9.6 8.8 - [...] 11:10 PM CDT 11/30/2023 11:19 PM CDT Pirece Lorenzo MD LAB - BLOOD ORDERABL ES [facility] [address] [facility] [facility] (1st floor, no room number) [place] [address] documented in this encounter Visit Diagnoses Diagnosis Severe episode of recurrent major depressive disorder, without psychotic features (H)- Primary Suicidal ideation Anxiety Anxiety state, unspecified documented in this encounter Administered Medications Inactive Administered Medications - up to 3 most recent administrations Medication Order MAR Action Action Date Dose Rate Site hydrOXYzine HCl (ATARAX) tablet 25 mg 25 mg, Oral, 3 TIMES DAILY PRN, anxiety, Starting on Wed12/01/23 at 1434, Start with 25 mg for the initial dose. If the 25 mg dose is ineffective, increase to the 50 mg dose at the next administration time and maintain further doses at 50 mg. If the 50 mg dose is ineffective, contact the provider. $Given 12/02/2023 9:26 AM CDT 25 mg $Given 12/01/2023 3:18 PM CDT 25 mg melatonin tablet 5 mg 5 mg, Oral, AT BEDTIME PRN, sleep, Starting on Wed12/01/23 at 1434 nicotine (COMMIT) lozenge 2 mg 2 mg, Buccal, EVERY 1 HOUR PRN, nicotine withdrawal symptoms, Starting on Wed12/01/23 at 1435, Allow lozenge to dissolve completely. Do Not Bite, Chew, or Swallow. nicotine (COMMIT) lozenge 4 mg 4 mg, Buccal, ONCE, On Wed12/01/23 at 1230, For 1 dose, Allow lozenge to dissolve completely. Do Not Bite, Chew, or Swallow. $Given 12/01/2023 12:29 PM CDT 4 mg sertraline (ZOLOFT) tablet 100 mg 100 mg, Oral, AT BEDTIME, First dose on Wed11/30/23 at 2305 $Given 11/30/2023 11:23 PM CDT 100 mg sertraline (ZOLOFT) tablet 150 mg 150 mg, Oral, AT BEDTIME, First dose (after last modification) on Wed12/01/23 at 2200 $Given 12/02/2023 2:23 AM CDT 15 0 mg documented in this encounter Active and Recently Administered Medications Times are shown in CDT. Scheduled Medication Order 11/30/2023 12/01/2023 12/02/2023 nicotine (COMMIT) lozenge 4 mg (COMPLETED) 4 mg, Buccal, ONCE, On Wed12/01/23 at 1230, For 1 dose, Allow lozenge to dissolve completely. Do Not Bite, Chew, or Swallow. 1229 ($Given - Provider: Dotty Fry RN) sertraline (ZOLOFT) tablet 100 mg (CANCELED) 100 mg, Oral, AT BEDTIME, First dose on Wed11/30/23 at 2305 2323 ($Given - Provider: Rl Queen RN) sertraline (ZOLOFT) tablet 150 mg 150 mg, Oral, AT BEDTIME, First dose (after last modification) on Wed12/01/23 at 2200 0223 ($Given - Provider: Estephania Joya RN) PRN Medication Order 11/30/2023 12/01/2023 12/02/2023 hydrOXYzine HCl (ATARAX) tablet 25 mg 25 mg, Oral, 3 TIMES DAILY PRN, anxiety, Starting on Wed12/01/23 at 1434, Start with 25 mg for the initial dose. If the 25 mg dose is ineffective, increase to the 50 mg dose at the next administration time and maintain further doses at 50 mg. If the 50 mg dose is ineffective, contact the provider. 1512 ($Given - Provider: Dotty Fry RN) 7692 ($Given - Provider: Jacy Hernandez RN) melatonin tablet 5 mg 5 mg, Oral, AT BEDTIME PRN, sleep, Starting on Wed12/01/23 at 1434 nicotine (COMMIT) lozenge 2 mg 2 mg, Buccal, EVERY 1 HOUR PRN, nicotine withdrawal symptoms, Starting on Wed12/01/23 at 1435, Allow lozenge to dissolve completely. Do Not Bite, Chew, or Swallow. documented in this encounter Additional Health Concerns Assessment Noted Time PHQ-9 Depression Total Score: 8 09/09/19 17 7:29 AM CDT documented as of this encounter Care Teams Auto Brake Mechanic Relationship Specialty Start Date End Date Cullen Gonzales MD [facility] - [address] [address] PCP - General Family Medicine 11/30/23 documented as of this encounter
--- OUTSIDE RECORDS SUMMARY | 2023-12-08 10:00 | XMS_ITS | Encounter Summary ---
Author Organization [facility] Address [address] [place] [id number] Care Team Providers Care Court Collections Officer Name Role Phone Cullen Gonzales MD Primary Care Provider [phone] Reason for Visit * Reason Onset Date Comments MH/CD Inpatient 11/30/2023 Encounter Details Date Type Department Care Team ([facility] st Contact Info) Description 11/30/2023 Telephone [facility] Intake [address] [place] [id number] Generic, Behavioral Intake, MD MH/CD Inpatient Social History Tobacco Use Types [...] encounter Miscellaneous Notes * Telephone Encounter - Belle Martinez [place] - 11/30/2023 11:01 PM CDT S: [facility] ED , DEC Production Supervisor Off Shift Krupa calling at 10:55 PM about a 33 year old/Male presenting with SI w/ plan B: Pt arrived via Family. Presenting problem, stressors: Pt reports he's been trying to get into his brother's gun safe for the past 2 weeks. 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 Pt reports feeling hopeless. Pt affect in ED: Flat Pt Dx: Major Depressive Disorder and Generalized Anxiety Disorder Previous [facility] hx? No Pt endorses SI with a plan to shoot himself Hx of suicide attempt? No Pt endorses SIB via cut, most recent episode today Pt denies HI Pt denies hallucinations . Pt RARS Score: 2 Hx of aggression/violence, sexual offenses, legal concerns, Epic care plan? describe: no Current concerns for aggression this visit? No Does pt have a history of Civil Commitment? No Is Pt their own guardian? Yes Pt is prescribed medication. Is patient medication compliant? Yes Pt endorses OP services: Medication Management CD concerns: None Acute or chronic medical concerns: none Does Pt present with specific needs, assistive devices, or exclusionary criteria? None Pt is ambulatory Pt is able to perform ADLs independently A: Pt to be reviewed for [facility] admission. Pt is Voluntary Preferred placement: [facility] COVID Symptoms: No If yes, COVID test required Utox: Ordered, not yet collected CMP: Ordered, not yet collected CBC: Ordered, not yet collected HCG: N/A R: Patient cleared and ready for behavioral bed placement: Yes Pt placed on [facility], [facility] worklist? Yes Does Patient need a Transfer Center request created? Yes, check writer completed Transfer Center request at: 11:05 PM R: [facility] Inpatient Bed Call Log 11/30/23 4:15PM Intake has called facilities that have not updated the bed status within the last 12 hours. [facility] is at capacity. [facility] is posting 0 beds. [phone] Per call @ 8:30 AM, no beds. [facility] is posting 0 beds. Negative covid required. [facility] is posting 0 beds. Neg covid. No high school/[facility]. [phone]. [facility] is posting 0 beds. [phone] [facility] is posting 0 beds. [phone] [facility] is posting 1 bed. Negative covid. Per call at 7:45 am to Swathi, no young adult beds avail. [facility] ([facility]) is posting 0 beds [phone] documented in this encounter Plan of Treatment Not on file documented as of this encounter Visit Diagnoses Not on filedocumented in this encounter Additional Health Concerns Assessment Noted Time PHQ-9 Depression Total Score: 8 09/09/19 17 7:29 AM CDT documented as of this encounter Care Teams Court Collections Officer Relationship Specialty Start Date End Date Cullen Gonzales MD [facility] - [place] [phone] PCP - General Family Medicine 11/30/23 documented as of this encounter
--- OUTSIDE RECORDS SUMMARY | 2023-12-08 10:00 | XMS_ITS | Encounter Summary ---
Author Organization [facility] Address [address] [place] [address] Care Team Providers Care Neck Band Operator Name Role Phone Cullen Gonzales MD Primary Care Provider [phone] Encounter Details Date Type Department Care Team (Latest Contact Info) Description 12/02/2023 Travel Social History Tobacco Use Types Packs/Day [...] documented as of this encounter Care Teams Neck Band Operator Relationship Specialty Start Date End Date Cullen Gonzales MD [address] [address] PCP - General Family Medicine 11/30/23 documented as of this encounter
== END 2023-12-08 09:58 | disposition home or self-care (01) ==
PROVIDERS: PCP Family Medicine; Visit Provider Family Medicine
DX: F41.9 Anxiety disorder, unspecified (principal); Z13.1 Encounter for screening for diabetes mellitus; Z13.6 Encounter for screening for cardiovascular disorders
CPT/HCPCS: 80053; 82306

== ENCOUNTER 2024-06-16 07:59 | Outpatient (CLI) | payer BC, SELFPAY | END 2024-06-16 08:00 | disposition home or self-care (01) | LOC: NFLDREF 06-20 16:43 | PROVIDERS: PCP Family Medicine; Referring Provider Family Medicine; Visit Provider Family Medicine | DX: E78.5 Hyperlipidemia, unspecified (principal); E55.9 Vitamin D deficiency, unspecified; F41.9 Anxiety disorder, unspecified; Z86.39 Personal history of other endocrine, nutritional and metabolic disease | CPT/HCPCS: 80053; 80061; 82306 ==